=== PATIENT | male | born 2005 | race African-American/Black ===

== ENCOUNTER 2024-05-18 18:12 | Outpatient (CLI) | payer MEDICAID, SELFPAY ==
--- NOTE | 2024-05-18 18:00 | RT.EKG_ITS ---
APPROVED REPORT Exam: Resting ECG Reason for Exam: evaluation of cardiology Patient Location: O HR:109 bpm ECG Measurements Heart Rate 109 AXIS ND 131 P 58 QRSd 85 QRS 63 QT 302 T 42 QTc 407 Conclusion Sinus tachycardia...rate> 99 ST elev, probable normal early repol pattern...ST elevation, age<55 Baseline wander in lead(s) V4,V5,V6 Normal Electrocardiogram
== END 2024-05-18 18:13 | disposition home or self-care (01) ==
LOC: DI.CM 18:13
PROVIDERS: Visit Provider Physician Assistant
DX: R06.89 Other abnormalities of breathing (principal)
CPT/HCPCS: 93010

== ENCOUNTER 2024-05-18 19:05 | Inpatient (IN) | payer MEDICAID, SELFPAY ==
[2024-05-18] VITALS (23 sets, daily range): BP systolic 176–193; BP diastolic 109–138; PULSE 86–116; RESP 12–26; TEMP 37.3; O2SAT 85–98
--- NOTE | 2024-05-18 19:00 | RT.EKG_ITS ---
APPROVED REPORT Exam: Resting ECG Reason for Exam: ST changes noted on [facility] EKG done THERAPEUTIC CASE MANAGER Patient Location: E HR:109 bpm ECG Measurements Heart Rate 109 AXIS MS 129 P 61 QRSd 88 QRS 56 QT 303 T 31 QTc 408 Conclusion Sinus tachycardia at a rate of 109 without acute ischemic change
--- NOTE | 2024-05-18 19:14 | W.ED.GENAD ---
Discharge Plan Disposition Patient Disposition: Admit to [facility] Condition: Stable Discharge Details Clinical Impression: Sepsis Primary Care Provider: Unknown,Unknown ED Provider: Rubens Berry Home Meds and New Rx's Prescriptions: No Action No Known Home Meds HPI General Date/Time Provider Initiated Documentation: 05/18/24 19:14. HPI Narrative: 18 year-old male presents to ED today by EMS with a chief complaint of seen at [facility] in [place] with shortness of breath for 4 days, toxic vitals noted at office- they were concerned for PTX vs PNA. Quality described as acute on chronic nausea/vomiting, cough with brown and green sputum, mild shortness of breath, lethargy, no radiation to fever, diarrhea, severe headache, patient endorses sinus congestion, endorses breathing weird when he lays down, endorses right-sided abdominal pain, Patient is a very poor historian and has a flat affect I think his health literacy is low. Severity is described as moderate to severe. Palliating factors include nothing specific attempted. Provoking factors include nothing specific. Patient not anticoagulated. Related Data Home Medications ?Medication ?Instructions ?Recorded ?Confirmed Unknown [No Known Home Meds] 05/18/24 05/18/24 Allergies Allergy/AdvReac Type Severity Reaction Status Date / Time seasonal allergies Allergy Unknown runny nose Uncoded 05/18/24 19:08 General Stated Complaint: SOB QUIRINO: 3 Review of Systems All systems reviewed & are unremarkable except as noted in HPI and below Exam Narrative Exam Narrative: GENERAL APPEARANCE: Well-nourished, toxic, awake and alert, atraumatic, mild acute distress. SKIN: Warm, pale, dry, intact, without rashes/lesions/ulcerations. HEAD: Normocephalic, atraumatic, normal hair distribution for gender/age. EYES: Normal conjunctiva, no exudates on lids/lashes. ENT: Nares patent, no circumoral cyanosis, no facial swelling, maxillary sinus tenderness NECK: Supple, trachea midline, painless cervical ROM. LUNGS/CHEST: Lungs -diffusely rhonchorous lungs, no wheezing, poor air movement, non-labored respirations, normal A/P diameter, symmetrical expansion, no chest wall deformity HEART (CV/PV): Regular rate and rhythm without murmur, no peripheral edema, no JVD. ABDOMEN: Soft, non-distended, no guarding, right upper quadrant tenderness and firmness, no McBurney's point tenderness, no CVA tenderness bilaterally to percussion. MSK: Normal ROM, no swelling/deformity to bilateral UEs or LEs, moving all extremities without weakness, no cyanosis, spine midline without tenderness, normal curvature. NEURO: Mental Status AAOx4 - alert to person, place, time, events No facial droop, no forehead involvement. Motor: No focal weakness - strength 5/5 in bilateral UEs and LEs, proximal and distal, symmetric. Sensory: sensation intact to light touch globally. Gait normal: patient ambulated without ataxia into ED room. PSYCH: dysthymic, cooperative, flat affect, appropriate speech Course Vital Signs Vital signs: Vital Signs Temperature 37.3 C 05/18/24 19:04 Pulse 114 H 05/18/24 19:04 Respiratory Rate 14 05/18/24 19:04 Blood Pressure 191/123 H 05/18/24 19:04 Pulse Oximetry 96 05/18/24 19:04 Temperature 37.3 C 05/18/24 19:11 Temperature Source Oral 05/18/24 19:11 Pulse 114 H 05/18/24 19:11 Respiratory Rate 14 05/18/24 19:11 Respiratory Effort Short of Breath 05/18/24 19:09 Blood Pressure 191/123 H 05/18/24 19:11 Pulse Oximetry 96 05/18/24 19:11 Oxygen Delivery Method Room Air 05/18/24 19:11 Oxygen Flow Rate 0 05/18/24 19:11 Pain Level 6 05/18/24 19:11 Medical Decision Making This dictation utilizes [id number] dictation software and may contain unedited grammatical errors. 18 year-old male presents to ED today by EMS with a chief complaint of seen at [facility] in [place] with shortness of breath for 4 days, toxic vitals noted at office- they were concerned for PTX vs PNA. Quality described as acute on chronic nausea/vomiting, cough with brown and green sputum, mild shortness of breath, lethargy, no radiation to fever, diarrhea, severe headache, patient endorses sinus congestion, endorses breathing weird when he lays down, endorses right-sided abdominal pain, Patient is a very poor historian and has a flat affect I think his health literacy is low. Severity is described as moderate to severe. Palliating factors include nothing specific attempted. Provoking factors include nothing specific. Patients' medical history: Negative, otherwise healthy. Family and social history: Patient endorses daily marijuana use, denies illicit substance use. Pertinent exam findings / vital signs include right upper quadrant abdominal tenderness, diffusely rhonchorous lungs with poor air movement left worse than right, tachycardia, benign cardiac exam, no meningismus, neuro baseline. Differential / pathologies of concern include sepsis, pneumonia, Legionella pneumonia, biliary colic, unlikely cannabis hyperemesis. Diagnostic studies of: -CBC, CMP, lactate, lipase, troponin, COVID/flu/RSV PCR, XR chest, blood cultures, CT chest/ABD/pelvis W contrast, VBG. -CBC shows a leukocytosis of 30.99, elevated ANC to 27.64 -Lactate is negative -CMP is without acute abnormality save for mild elevation of alk phos -Lipase within normal limits -Respiratory panel swab negative -XR chest shows no acute abnormality -Blood cultures pending -VBG shows no acute abnormality -CT Chest/ABD/Pelvis w Contrast read after shift-change to hospitalist. Interventions of: -Sepsis bolus 30 cc/kg, 2250 mL total. 2 g IV ceftriaxone, 500 mg IV azithromycin, 1 g IV Tylenol, 50 mg IV ketorolac, 4 mg IV Zofran ED Course/Assessment/Plan: 18-year-old male with toxic vitals and a respiratory syndrome with right upper quadrant tenderness and nausea and vomiting presents to the ED from [facility] in [place], their providers were concerned for pneumonia versus pneumothorax, his chest x-ray is normal but his white count is 31 which is concerned for sepsis, his other laboratory workup is fairly benign and due to the right upper quadrant tenderness as well as no pulmonary abnormality seen on chest x-ray we did order CT chest abdomen pelvis after consulting with hospitalist Dr. Nieto, as well as a VBG. I think the patient meets sepsis criteria and should be admitted regardless of results but pending no surgical abnormality he will be excepted to medicine service. Disposition of Sepsis. Patient verbalized understanding of the plan and return to ED criteria and engaged in shared decision making. Medical Records Medical records reviewed: Yes I reviewed the patient's medical records. Imaging Data Radiologic Study: Attestation: I personally reviewed and interpreted this imaging study as follows: Imaging: X-Ray Radiologist's impression: Exam: XR Chest Exam date and time: 05/18/2024 7:48 PM Age: 18 years old Clinical indication: Cough TECHNIQUE: Imaging protocol: Radiologic exam of the chest. Views: 2 views. COMPARISON: No relevant prior studies available. FINDINGS: Lungs: Unremarkable. No consolidation. Pleural spaces: Unremarkable. No pleural effusion. No pneumothorax. Heart/Mediastinum: Unremarkable. No cardiomegaly. Bones/joints: Unremarkable. IMPRESSION: No acute findings. Lab Data Lab results reviewed: Yes I reviewed the patient's lab results. Labs: 05/18/24 20:00 Blood Blood Culture - Pending 05/18/24 19:31 Blood Blood Culture - Pending Laboratory Tests Range/Units 05/18/24 05/18/24 05/18/24 19:31 19:34 20:25 WBC (4.4-10.8) 10^3/uL 30.99 H* RBC (4.36-5.78) 10^6/uL 6.00 H Hgb (13.5-17.5) g/dL 16.2 Hct (40.0-50.0) % 49.4 MCV (80-95) fL 82 MCH (27.0-33.0) pg 27.0 MCHC (32.0-36.0) % 32.8 RDW (11.8-14.1) % 14.5 H Plt Count (130-400) 10^3/uL 456 H MPV (8.0-11.0) fL 9.2 Immature Gran % % 0.7 Neutrophils % % 89.2 Lymphocytes % % 4.8 Monocytes % % 4.5 Eosinophils % % 0.3 Basophils % % 0.5 Nucleated RBC % (0.0-0.3) % 0.0 Absolute Neutrophils (1.2-6.7) 10^3/uL 27.64 H Absolute Lymphocytes (1.2-3.4) 10^3/uL 1.49 Absolute Monocytes (0.1-0.8) 10^3/uL 1.39 H Absolute Eosinophils (0.0-0.7) 10^3/uL 0.09 Absolute Basophils (0.0-0.2) 10^3/uL 0.15 RBC Morphology Normal VBG Lactate (0.6-1.4) mmol/L 1.2 Sodium (136-145) mmol/L 145 Potassium (3.5-5.1) mmol/L 3.7 Chloride (98-107) mmol/L 107 Carbon Dioxide (21.0-32.0) mmol/L 28.1 Anion Gap (3-11) mmol/L 9.9 BUN (7-18) mg/dL 10 Creatinine (0.70-1.30) mg/dL 1.0 Est GFR (CKD-EPI 2020) (mL/min/1.73m2) 111.19 Glucose (74-106) mg/dL 101 Calcium (8.5-10.1) mg/dL 9.6 Total Bilirubin (0.2-1.0) mg/dL 0.34 AST (15-37) U/L 17 ALT (16-63) U/L 31 Alkaline Phosphatase (46-116) U/L 141 H Troponin I (<or=76) ng/L 7 7 Total Protein (6.4-8.2) g/dL 8.5 H Albumin (3.4-5.0) g/dL 3.9 Lipase (16-77) U/L 26 COVID-19 Source Nasopharynx SARS-CoV-2 (PCR) (Negative) Negative Influenza Type A (PCR) (Negative) Negative Influenza Type B (PCR) (Negative) Negative RSV (PCR) (Negative) Negative Quality:SDOH Health Related Social Needs: No Data to Display PFSH All Active Problems (Updated 05/18/24 @ 21:44 by BARRY Fiore) Sepsis (Acute) Social History Smoking/Tobacco Use Status: Current every day Tobacco Type: e-cigarettes Smoking risk assessment performed?: Yes Alcohol Intake: current Alcohol Intake frequency: a few times a month Alcohol type: hard liquor Drug use: Daily Substance use type: marijuana Details: PT states he smokes marijuana daily 05/18/24 Do you feel safe at home: Yes Do you feel safe in your relationship?: Yes
[2024-05-18] MEDS: Ketorolac 15 MG/ML VIAL IVP (19:35)
[2024-05-18] MEDS: ACETAMINOPHEN 1,000 MG/100 ML BAG 400 MG IVPB (19:35)
[2024-05-18 19:39] LABS: Lactate 1.2 mmol/L (0.6-1.4)
[2024-05-18 19:41] LABS: Abs Immature Grans 0.21 10^3/uL (0.0-0.06); Absolute Eosinophil Count 0.09 10^3/uL (0.0-0.7); Absolute Lymphocyte Count 1.49 10^3/uL (1.2-3.4); Absolute Monocyte Count 1.39 10^3/uL (0.1-0.8); Basophils % 0.5 %; Eosinophils % 0.3 %; HCT 49.4 % (40.0-50.0); HGB 16.2 g/dL (13.5-17.5); Immature Grans % 0.7 %; Lymphocytes % 4.8 %; MCHC 32.8 % (32.0-36.0); MCV 82 fL (80-95); MPV 9.2 fL (8.0-11.0); Monocytes % 4.5 %; Neutrophils % 89.2 %; Platelet Count 456 10^3/uL (130-400); RDW 14.5 % (11.8-14.1); RDW-SD 43.1 fL
[2024-05-18 19:46] LABS: Absolute Basophil Count 0.15 10^3/uL (0.0-0.2); Absolute Neutrophil Count 27.64 10^3/uL (1.2-6.7)
[2024-05-18 19:48] LABS: Diff Comment Diff Reviewed; RBC Morphology Normal; WBC 30.99 10^3/uL (4.4-10.8)
--- NOTE | 2024-05-18 19:52 | DI.RAD_ITS ---
Exam(s) XR CHEST 2V PA LATERAL EXAM: XR CHEST 2V PA LATERAL CLINICAL HISTORY: cough TECHNIQUE: 2D digital imaging was performed. Two views. COMPARISON: No exams were available for comparison FINDINGS: HEART: Normal size. Aorta: Not dilated. PULMONARY VASCULATURE: Normal. MEDIASTINUM: Unremarkable. LUNGS: Clear. PLEURAL SPACE: No pleural effusion or pneumothorax. BONE:Unremarkable for age. SOFT TISSUES: Unremarkable. IMPRESSION: No acute abnormality. DATA REPOSITORY: RADIATION DOSE DELIVERED:
[2024-05-18] MEDS: cefTRIAXone 2 GM/50 ML BAG IVPB (20:02)
[2024-05-18] MEDS: Normal Saline 1,000 ML 1000 ML IV ×2 (20:02→20:09)
[2024-05-18 20:03] LABS: ALT 31 U/L (16-63); AST 17 U/L (15-37); Albumin 3.9 g/dL (3.4-5.0); Alkaline Phosphatase 141 U/L (46-116); Anion Gap 9.9 mmol/L (3-11); BUN 10 mg/dL (7-18); Bilirubin, Total 0.34 mg/dL (0.2-1.0); CO2 28.1 mmol/L (21.0-32.0); Chloride 107 mmol/L (98-107); Estimated GFR 111.19 (mL/min/1.73m2); Glucose 101 mg/dL (74-106); Lipase 26 U/L (16-77); Potassium 3.7 mmol/L (3.5-5.1); Sodium 145 mmol/L (136-145); Total Protein 8.5 g/dL (6.4-8.2); Troponin I 7 ng/L (<or=76)
[2024-05-18 20:08] LABS: Calcium 9.6 mg/dL (8.5-10.1)
[2024-05-18 20:22] LABS: COVID-19 PCR Negative (Negative); Influenza A PCR Negative (Negative); Influenza B PCR Negative (Negative); RSV PCR Negative (Negative)
--- NOTE | 2024-05-18 20:25 | DI.VRAD_ITS ---
PROCEDURE INFORMATION: Exam: XR Chest Exam date and time: 05/18/2024 7:48 PM Age: 18 years old Clinical indication: Cough TECHNIQUE: Imaging protocol: Radiologic exam of the chest. Views: 2 views. COMPARISON: No relevant prior studies available. FINDINGS: Lungs: Unremarkable. No consolidation. Pleural spaces: Unremarkable. No pleural effusion. No pneumothorax. Heart/Mediastinum: Unremarkable. No cardiomegaly. Bones/joints: Unremarkable. IMPRESSION: No acute findings. Dictated and Authenticated by: Clayton Napoles MD. Ordering:ABDULLAHI Art MD
[2024-05-18 20:30] LABS: Source Nasopharynx
[2024-05-18] MEDS: AZITHROMYCIN 500 MG in Normal Saline 250 ML 250 MG IVPB (20:45)
[2024-05-18 21:00] LABS: Troponin I 7 ng/L (<or=76)
--- NOTE | 2024-05-18 21:15 | DI.CT_ITS ---
Exam(s) CT CHEST/ABD/PEL W EXAM: CT CHEST/ABD/PEL W CLINICAL HISTORY: sepsis, infection search; resp vs abd. TECHNIQUE: Imaging Protocol: Axial computed tomography images with coronal and sagittal reformatted images were created and reviewed. Computer aided detection (CAD) was utilized. CONTRAST MATERIAL: Intravenous: Omnipaque 350 Contrast volume:100 ml Oral: no COMPARISON: CR,XR XR CHEST 2V PA LATERAL from 05/18/2024 FINDINGS: CHEST: Exam mildly limited by respiratory motion. Tracheobronchial tree: Patent. Pulmonary parenchyma: No consolidation or dominant measurable mass. Pleura: No effusion or pneumothorax. Mediastinum: Within normal limits. Aorta: Thoracic portion non-dilated. Pulmonary arteries: Not optimally opacified. No visible emboli. Heart: No pericardial effusion. Bones: Unremarkable for age. No lytic or blastic lesions.No compression fractures. Soft tissues: Unremarkable. ABDOMEN and PELVIS: Exam mildly limited by motion. Liver: Mildly enlarged. Mild fatty infiltration. No measurable mass. Gallbladder and biliary tract: No evidence of stones or wall thickening. No biliary dilatation. Pancreas: Normal density, no abnormal calcifications or inflammatory process. Spleen: Normal. Kidneys: Normal size, contour and axis. No radiodense stones. No obstructive uropathy. No suspicious masses seen. Adrenal glands: No masses seen. Aorta: Abdominal portion non-dilated. Lymph nodes: Within normal limits. Soft tissues: Unremarkable. Bladder: Nearly empty but unremarkable. Bowel: No obstruction or bowel wall thickening. Normal quantity of stool. Peritoneal cavity: No ascites. No focal collection. No mesenteric inflammatory response. No free ai r. Bones: Unremarkable for age. Reproductive organs: Within normal limits. IMPRESSION: No acute abnormality in the chest, abdomen or pelvis. RADIATION DOSE DELIVERED: Total DLP DATA REPOSITORY: All CT scans at this facility are submitted to the National Radiology Data Registry (NRDR) Dose Index Registry (DIR) with the [employer] (ACR). RADIATION OPTIMIZATION: All CT scans at this facility use at least one of these dose optimization te chniques: automated exposure control; mA and/or kV adjustment per patient size (includes targeted exa ms where dose is matched to clinical indication); or iterative reconstruction.
[2024-05-18 21:39] LABS: BE (Venous) 3 mmol/L (-2-3); HCO3 (Venous) 28 mmol/L (23-28); O2 Sat (Venous) 40 %; TCO2 (Venous) 25 mmol/L (24-29); pCO2 (Venous) 50 mmHg (41-51); pH (Venous) 7.36 (7.31-7.41); pO2 (Venous) 24 mmHg
[2024-05-18] MEDS: Omnipaque 350 MG/ML 100 ML BTL IJ (21:46)
[2024-05-18] MEDS: Normal Saline - Diluent 50 ML VIAL IJ (21:46)
--- NOTE | 2024-05-18 22:18 | DI.VRAD_ITS ---
PROCEDURE INFORMATION: Exam: CT Chest With Contrast; Diagnostic Exam date and time: 05/18/2024 9:45 PM Age: 18 years old Clinical indication: Other: Sepsis, infection search; Resp vs abd TECHNIQUE: Imaging protocol: Diagnostic computed tomography of the chest with contrast. 3D rendering (Not supervised by radiologist): MIP and/or 3D reconstructed images were created by the technologist. Contrast material: OMNI 350; Contrast volume: 100 ml; Contrast route: INTRAVENOUS (IV); COMPARISON: CR XR CHEST 2V PA LATERAL 05/18/2024 7:48 PM FINDINGS: Lungs: No acute lung consolidation. No pulmonary edema. Pleural spaces: No pleural effusion. Heart: Unremarkable. No cardiomegaly. No pericardial effusion. Lymph nodes: No hilar or mediastinal lymphadenopathy. Vasculature: Pulmonary artery is unremarkable in course and caliber. No pulmonary arterial embolism is detected. Contrast opacification is not optimized for this diagnosis. Thoracic aorta is unremarkable in course and caliber. Bones/joints: Unremarkable. No acute fracture. Soft tissues: Chest wall soft tissues are unremarkable. IMPRESSION: 1. No acute findings of the lungs and pleural space. 2. No hilar or mediastinal adenopathy. Chest wall soft tissues are unremarkable. PROCEDURE INFORMATION: Exam: CT Abdomen And Pelvis With Contrast Exam date and time: 05/18/2024 9:45 PM Age: 18 years old Clinical indication: Other: Sepsis, infection search; Resp vs abd TECHNIQUE: Imaging protocol: Computed tomography of the abdomen and pelvis with contrast. 3D rendering (Not supervised by radiologist): MIP and/or 3D reconstructed images were created by the technologist. Contrast material: OMNI 350; Contrast volume: 100 ml; Contrast route: INTRAVENOUS (IV); COMPARISON: CR XR CHEST 2V PA LATERAL 05/18/2024 7:48 PM FINDINGS: Liver: Diffuse moderate fatty liver change. Gallbladder and biliary ducts: The gallbladder is normal in size and shape. No stones or inflammatory changes. Pancreas: The pancreas is normal in contour and attenuation. Spleen: The spleen is normal in size, contour and attenuation. Adrenal glands: The adrenal glands are normal in size and contour bilaterally. Kidneys and ureters: No obstructive uropathy or acute renal inflammatory features. No calculi. No cyst or mass. Stomach and bowel: Gastric morphology is unremarkable. No edema. No gastric outlet obstruction. Small bowel loops are normal in course. There is some air and fluid throughout small bowel without lucy edema. cannot exclude a mild small bowel enteritis process. Large bowel is unremarkable in course and caliber. No edema. No obstruction or inflammatory features. Appendix: A non inflamed appendix is identified. Series 5: Images 99 through 103. Intraperitoneal space: No free fluid. No free air. Vasculature: Unremarkable. No abdominal aortic aneurysm. Lymph nodes: Unremarkable. No enlarged lymph nodes. Urinary bladder: Urinary bladder is unremarkable in appearance. No wall thickening. No intravesicular calculi. No intravesicular gas. Reproductive: Unremarkable as visualized. Bones/joints: Lumbar spine and bony pelvis are unremarkable. Soft tissues: Abdominal wall soft tissues are unremarkable. IMPRESSION: 1. Small bowel pattern suggesting a mild enteritis. No mechanical obstruction. 2. No free fluid or free air. 3. Fatty liver. 4. Unremarkable kidneys and urinary bladder. 5. A non inflamed appendix is identified. Dictated and Authenticated by: Clayton Napoles MD. Ordering:ABDULLAHI Art MD
[2024-05-18 22:19] LABS: Bilirubin Negative (Negative); Blood Negative (Negative); Clarity Clear (Clear); Glucose Negative (Negative); Ketones Negative (Negative); Leukocyte Esterase Negative (Negative); Nitrite Negative (Negative); Specific Gravity 1.015 (1.005-1.025); Urobilinogen 0.2 mg/dL (Up to 0.2)
--- NOTE | 2024-05-18 23:01 | W.PM.HP.N ---
Date of service: 05/18/24 Time of Service: 23:01 Assessment and Plan Assessment and plan (1) Sepsis: Start date: 05/18/24 Status: Acute Assessment and plan: This is a 18-year-old gentleman who has been generally well with upper respiratory symptoms beginning this last week prompting evaluation at the outpatient clinic and then in the ED because of difficulty breathing with asthma exacerbation. He had poor air movement but no hypoxemia with VBG revealing no respiratory alkalosis or compensation and his respiratory rate was low even though he was having dyspnea. This was concerning because of patient admitting to smoking THC and the possibility of other substances being inhaled. He was admitted initially to ICU level of care with his low respiratory rate and markedly elevated WBC though imaging was reassuring. He awakened and stated that he had not slept for days prior to this admission and denies illicit drug use. He was changed over to [facility] level of care and he was not meeting ICU criteria at this time. He will continue close monitoring with treatment of his hypertension with metoprolol and continuation of antibiotics with Zithromax for treatment of bronchitis. There is no indication for Zosyn or Rocephin at this time. If he does well he may be discharged home on oral therapy within 24-48 hours. He does need to establish with a local PCP for chronic care. He is a full code. Qualifiers: Sepsis acute organ dysfunction status: without acute organ dysfunction Sepsis type: sepsis due to unspecified organism Qualified Code(s): A41.9 - Sepsis, unspecified organism (2) Purulent bronchitis: Start date: 05/18/24 Status: Acute Assessment and plan: Continue Zithromax IV. Oral therapy at discharge. There is no indication for Zosyn which was initiated for possible GI source of sepsis initially or Rocephin which was initiated for possible pneumonia initially. (3) Asthma exacerbation: Start date: 05/18/24 Status: Acute Assessment and plan: Patient had asthma as a child and smokes marijuana daily with possible other substances being smoked. He was hypopneic but denied smoking illicit drugs other than THC which is legal though he has used cocaine in the past. It is possible he may have smoked an unknown substance but appears to be awake and not progressing with respiratory suppression at this time. He is not febrile. He does at least have bronchitis which will be treated but because of his slow respiratory rate and alertness improving along with negative imaging for acute pneumonia, he will have Zosyn and Rocephin discontinued but continue on Zithromax which can be converted to oral therapy to go home for treatment of bronchitis. He should continue maintenance inhaler and rescue inhaler at discharge. Qualifiers: Asthma persistence: persistent Asthma severity: moderate Qualified Code(s): J45.41 - Moderate persistent asthma with (acute) exacerbation (4) Gastroenteritis: Start date: 05/18/24 Status: Acute Assessment and plan: Patient did have viral URI and may have a viral gastroenteritis presently with some mild abdominal discomfort in his upper abdomen. He is having no diarrhea or change in bowel habits. He does not have nausea or vomiting. He does have steatorrhea and is moderately obese with no history of diabetes but possible thyroid disease in the past. Initially he was treated with Zosyn because of sepsis but appears to be improving quickly with mostly asthma exacerbation and bronchitis. Zosyn has been discontinued. Patient will be placed on clear fluids and advance diet as tolerated. (5) HTN (hypertension): Status: Chronic Assessment and plan: Patient states his blood pressures always been elevated when measured and has not had a recent medical care. Metoprolol low-dose 25 mg twice daily and can be discharged home on metoprolol succinate 50 mg daily for and a higher dose as needed for blood pressure control. He is tachycardic as well. Qualifiers: Hypertension type: unspecified secondary hypertension Qualified Code(s): I15.9 - Secondary hypertension, unspecified (6) Steatohepatitis: Status: Chronic Assessment and plan: Patient has been overweight most of his life and did have a history of possible hypothyroidism when he was younger. Check TSH and follow-up clinically. History of Present Illness History of Present Illness Chief Complaint: Shortness of breath with decreased alertness. Narrative: This is a 18-year-old male patient who has a history of asthma as a child but not on treatment presently who began to have upper respiratory symptoms with mild abdominal discomfort over the last week. He does work at [employer] and is exposed to the public. He denies any fever. He was seen as an outpatient but return to the ED because of increasing shortness of breath. In the ED he had no fever but a markedly elevated WBC with tachycardia and hypertension. He also was drowsy and sleeping with slow respiratory rate into the 12 breaths/min and multiple times during his evaluation. VBG did not show respiratory alkalosis as would be suspected with shortness of breath though he was not hypoxic. There was some concern of illicit drug use because of his decreased respiratory rate and decreased alertness though the patient stated that he was simply sleeping because of not having restful sleep over the last several days. While elevated in the ICU he was alert and talking normally. Also his respiratory rate was normal but he continued with hypertension and tachycardia. He did not manifest fever. Imaging did reveal fatty liver and possible enteritis the patient being given Zosyn initially with his presentation and sepsis. He also received Rocephin in the ED with Zithromax for possible reacquired pneumonia but CT of the chest did not reveal any infiltrates. The patient at least does have bronchitis with productive purulent sputum at home. He denies any hemoptysis. He was on treatment for asthma when he was younger but this has been stopped as he moved up to [place], [place]. He will continue on nebulizer treatments with IV Zithromax and close monitoring while initiating treatment for his blood pressure which is chronically elevated for this patient. We will trend his WBC or fever. Urine drug screens have been sent but patient denies any recent use of illicit drugs though he has used cocaine in the past. He mostly smokes THC daily. He is a full code. Review of Systems Narrative: 13 point review of systems otherwise unrevealing or stable. PFSH All Active Problems (Updated 05/19/24 @ 01:42 by Samuel Nieto) Asthma exacerbation (Acute) Purulent bronchitis (Acute) HTN (hypertension) (Chronic) Gastroenteritis (Acute) Steatohepatitis (Chronic) Sepsis (Acute) Social History Smoking/Tobacco Use Status: Current every day Tobacco Type: e-cigarettes Smoking risk assessment performed?: Yes Alcohol Intake: current Alcohol Intake frequency: a few times a month Alcohol type: hard liquor Drug use: Daily Substance use type: marijuana Details: PT states he smokes marijuana daily 05/18/24 Housing: house Do you feel safe at home: Yes Do you feel safe in your relationship?: Yes Meds Allergies and Home Medications Allergies Allergy/AdvReac Type Severity Reaction Status Date / Time seasonal allergies Allergy Unknown runny nose Uncoded 05/18/24 19:08 Home Medications ?Medication ?Instructions ?Recorded ?Confirmed ?Type Unknown [No Known Home Meds] 05/18/24 05/18/24 History Exam Narrative Exam Narrative: General: Patient appears appropriate for age, moderately obese, alert and oriented x 3 and in no acute distress. Poor eye contact and flattened affect with slow monotonous tone to speech. HEENT: Normocephalic, eyes with pupils equal and reactive to light symmetrically, extraocular movement intact and sclera anicteric. Oropharynx with moist mucosa and normal dentition. Neck: Supple without JVD. Back: Stooped posture without CVA tenderness. Lungs: Poor to fair aeration diffusely with increased expiratory phase and expiratory wheeze without rhonchi or rales. Vesicular breath sounds. Heart: Regular rate and rhythm with no murmur or gallop appreciated. Abdomen: Obese contour, soft and nontender to palpation with no palpable hepatosplenomegaly. Bowel sounds positive all quadrants. Genitalia/rectal: Exam deferred. Skin: Brown, warm and dry. Normal turgor. No rashes. Extremities: Without edema, clubbing or cyanosis. Peripheral pulses intact. Normal joints. Neuro: Cranial nerves II through XII gross intact, no focalized motor deficits. No tremor. Normal tone and symmetrical, histologic DTRs bilaterally. Psych: Flattened affect with depressed mood. Decreased eye contact. Monotonous tone to voice with slow speech. No abnormal thought processes. Remote and recent memory intact. Results Imaging Imaging Studies: Exam: CT Chest With Contrast; Diagnostic Exam date and time: 05/18/2024 9:45 PM Age: 18 years old Clinical indication: Other: Sepsis, infection search; Resp vs abd TECHNIQUE: Imaging protocol: Diagnostic computed tomography of the chest with contrast. 3D rendering (Not supervised by radiologist): MIP and/or 3D reconstructed images were created by the technologist. Contrast material: OMNI 350; Contrast volume: 100 ml; Contrast route: INTRAVENOUS (IV); COMPARISON: CR XR CHEST 2V PA LATERAL 05/18/2024 7:48 PM FINDINGS: Lungs: No acute lung consolidation. No pulmonary edema. Pleural spaces: No pleural effusion. Heart: Unremarkable. No cardiomegaly. No pericardial effusion. Lymph nodes: No hilar or mediastinal lymphadenopathy. Vasculature: Pulmonary artery is unremarkable in course and caliber. No pulmonary arterial embolism is detected. Contrast opacification is not optimized for this diagnosis. Thoracic aorta is unremarkable in course and caliber. Bones/joints: Unremarkable. No acute fracture. Soft tissues: Chest wall soft tissues are unremarkable. IMPRESSION: 1. No acute findings of the lungs and pleural space. 2. No hilar or mediastinal adenopathy. Chest wall soft tissues are unremarkable. PROCEDURE INFORMATION: Exam: CT Abdomen And Pelvis With Contrast Exam date and time: 05/18/2024 9:45 PM Age: 18 years old Clinical indication: Other: Sepsis, infection search; Resp vs abd TECHNIQUE: Imaging protocol: Computed tomography of the abdomen and pelvis with contrast. 3D rendering (Not supervised by radiologist): MIP and/or 3D reconstructed images were created by the technologist. Contrast material: OMNI 350; Contrast volume: 100 ml; Contrast route: INTRAVENOUS (IV); COMPARISON: CR XR CHEST 2V PA LATERAL 05/18/2024 7:48 PM FINDINGS: Liver: Diffuse moderate fatty liver change. Gallbladder and biliary ducts: The gallbladder is normal in size and shape. No stones or inflammatory changes. Pancreas: The pancreas is normal in contour and attenuation. Spleen: The spleen is normal in size, contour and attenuation. Adrenal glands: The adrenal glands are normal in size and contour bilaterally. Kidneys and ureters: No obstructive uropathy or acute renal inflammatory features. No calculi. No cyst or mass. Stomach and bowel: Gastric morphology is unremarkable. No edema. No gastric outlet obstruction. Small bowel loops are normal in course. There is some air and fluid throughout small bowel without lucy edema. cannot exclude a mild small bowel enteritis process. Large bowel is unremarkable in course and caliber. No edema. No obstruction or inflammatory features. Appendix: A non inflamed appendix is identified. Series 5: Images 99 through 103. Intraperitoneal space: No free fluid. No free air. Vasculature: Unremarkable. No abdominal aortic aneurysm. Lymph nodes: Unremarkable. No enlarged lymph nodes. Urinary bladder: Urinary bladder is unremarkable in appearance. No wall thickening. No intravesicular calculi. No intravesicular gas. Reproductive: Unremarkable as visualized. Bones/joints: Lumbar spine and bony pelvis are unremarkable. Soft tissues: Abdominal wall soft tissues are unremarkable. IMPRESSION: 1. Small bowel pattern suggesting a mild enteritis. No mechanical obstruction. 2. No free fluid or free air. 3. Fatty liver. 4. Unremarkable kidneys and urinary bladder. 5. A non inflamed appendix is identified. Exam: XR Chest Exam date and time: 05/18/2024 7:48 PM Age: 18 years old Clinical indication: Cough TECHNIQUE: Imaging protocol: Radiologic exam of the chest. Views: 2 views. COMPARISON: No relevant prior studies available. FINDINGS: Lungs: Unremarkable. No consolidation. Pleural spaces: Unremarkable. No pleural effusion. No pneumothorax. Heart/Mediastinum: Unremarkable. No cardiomegaly. Bones/joints: Unremarkable. IMPRESSION: No acute findings. Labs 05/18/24 19:34 05/18/24 19:34 Labs: Laboratory Results - last 24 hr 05/18/24 05/18/24 05/18/24 19:31 19:34 20:25 WBC 30.99 H* RBC 6.00 H Hgb 16.2 Hct 49.4 MCV 82 MCH 27.0 MCHC 32.8 RDW 14.5 H Plt Count 456 H MPV 9.2 Immature Gran % 0.7 Neutrophils % 89.2 Lymphocytes % 4.8 Monocytes % 4.5 Eosinophils % 0.3 Basophils % 0.5 Nucleated RBC % 0.0 Absolute Neutrophils 27.64 H Absolute Lymphocytes 1.49 Absolute Monocytes 1.39 H Absolute Eosinophils 0.09 Absolute Basophils 0.15 RBC Morphology Normal VBG pH VBG pCO2 VBG pO2 VBG HCO3 VBG Total CO2 VBG O2 Saturation VBG Base Excess VBG Lactate 1.2 Sodium 145 Potassium 3.7 Chloride 107 Carbon Dioxide 28.1 Anion Gap 9.9 BUN 10 Creatinine 1.0 Est GFR (CKD-EPI 2020) 111.19 Glucose 101 Calcium 9.6 Total Bilirubin 0.34 AST 17 ALT 31 Alkaline Phosphatase 141 H Troponin I 7 7 Total Protein 8.5 H Albumin 3.9 Lipase 26 Urine Color Urine Clarity Urine pH Ur Specific [place] Urine Protein Urine Ketones Urine Blood Urine Nitrite Urine Bilirubin Urine Urobilinogen Ur Leukocyte Esterase Urine Glucose COVID-19 Source Nasopharynx SARS-CoV-2 (PCR) Negative Influenza Type A (PCR) Negative Influenza Type B (PCR) Negative RSV (PCR) Negative 05/18/24 05/18/24 21:35 22:07 WBC RBC Hgb Hct MCV MCH MCHC RDW Plt Count MPV Immature Gran % Neutrophils % Lymphocytes % Monocytes % Eosinophils % Basophils % Nucleated RBC % Absolute Neutrophils Absolute Lymphocytes Absolute Monocytes Absolute Eosinophils Absolute Basophils RBC Morphology VBG pH 7.36 VBG pCO2 50 VBG pO2 24 VBG HCO3 28 VBG Total CO2 25 VBG O2 Saturation 40 VBG Base Excess 3 VBG Lactate Sodium Potassium Chloride Carbon Dioxide Anion Gap BUN Creatinine Est GFR (CKD-EPI 2020) Glucose Calcium Total Bilirubin AST ALT Alkaline Phosphatase Troponin I Total Protein Albumin Lipase Urine Color Yellow Urine Clarity Clear Urine pH 7.0 Ur Specific [place] 1.015 Urine Protein Negative Urine Ketones Negative Urine Blood Negative Urine Nitrite Negative Urine Bilirubin Negative Urine Urobilinogen 0.2 Ur Leukocyte Esterase Negative Urine Glucose Negative COVID-19 Source SARS-CoV-2 (PCR) Influenza Type A (PCR) Influenza Type B (PCR) RSV (PCR) Last Vital Signs Temp 37.3 C 05/18/24 19:11 Pulse 91 H 05/18/24 21:01 Resp 12 05/18/24 21:10 BP 193/120 H 05/18/24 21:01 Pulse Ox 92 05/18/24 21:10 Time Spent Time spent with Patient: >75 minutes Time was spent: preparing to see the patient(eg.review tests), obtaining and/or reviewing separately otained hiistory, ordering medications,tests, procedures, indepentently interpreting results, counseling the patient and care coordination
[2024-05-19] VITALS (58 sets, daily range): BP systolic 148–176; BP diastolic 87–111; PULSE 71–106; RESP 13–48; TEMP 36.4–37.2; O2SAT 92–100
[2024-05-19] LABS: ETHANOL BLOOD < 3.0 mg/dL (<10)
--- NOTE | 2024-05-19 00:22 | W.PC.ACHO ---
Registration Status: Primary Language: Preferred Language: ED Information & Data Chief Complaint SOB 05/18/24 19:14 Triage Note Pt arrives to the ED via EMS 05/18/24 19:04 c/o SOB x 4 days. Pt was seen at [facility] around 3 pm today c/f PTX vs. pneumonia per pt; LLL lung sounds diminished per EC. Pt states he is coughing up green/brown phlegm Most Recent Vital Signs Temperature 36.8 C 05/19/24 00:07 Temperature Source Temporal Artery Scan 05/19/24 00:07 Pulse 79 05/19/24 00:07 Pulse Rhythm Regular 05/19/24 00:07 Pulse Strength Normal 05/19/24 00:07 Pulse 98 H 05/18/24 21:10 Respiratory Rate 16 05/19/24 00:07 Respiratory Effort Normal 05/19/24 00:07 Respiratory Depth Normal 05/19/24 00:07 Respiratory Pattern Normal 05/19/24 00:07 Blood Pressure 148/87 H 05/19/24 00:07 Blood Pressure Mean 107 05/19/24 00:07 Blood Pressure Position Sitting 05/19/24 00:07 Pulse Oximetry 99 05/19/24 00:07 Oxygen Delivery Method Room Air 05/19/24 00:07 Oxygen Flow Rate 0 05/19/24 00:07 Pain Level 7 05/18/24 19:35 Comment MD aware of BP 05/18/24 19:32 Allergies seasonal allergies Allergy (Unknown, Uncoded 05/18/24 19:08) runny nose Precautions Isolation Droplet precaution 05/18/24 19:09 Active Medications Generic Name Dose Route Start Last Admin Trade Name Lynne PRN Reason Stop Dose Admin Iohexol 100 ml 05/18/24 22:00 05/18/24 21:46 Omnipaque 350 Mg/Ml 100 Ml Btl IJ 06/17/24 23:59 100 ml DIRECTED JANE Administration Sodium Chloride 250 ml 05/18/24 20:00 05/18/24 21:37 Normal Saline 250 Ml Bag IJ 250 ml DIRECTED JANE Administration Sodium Chloride 50 ml 05/18/24 22:00 05/18/24 21:46 Normal Saline - Diluent 50 Ml Vial IJ 50 ml .FOR DI USE JANE Administration IV IV Catheter Type [Right Peripheral IV Antecubital] IV Catheter Type [Left Peripheral IV Antecubital] IV Catheter Gauge [Right 20 Antecubital] IV Catheter Gauge [Left 18 Antecubital] Diagnostics 05/18/24 05/18/24 05/18/24 Range/Units 22:07 21:35 20:25 WBC (4.4-10.8) 10^3/uL RBC (4.36-5.78) 10^6/uL Hgb (13.5-17.5) g/dL Hct (40.0-50.0) % MCV (80-95) fL MCH (27.0-33.0) pg MCHC (32.0-36.0) % RDW (11.8-14.1) % Plt Count (130-400) 10^3/uL MPV (8.0-11.0) fL Immature Gran % % Neutrophils % % Lymphocytes % % Monocytes % % Eosinophils % % Basophils % % Nucleated RBC % (0.0-0.3) % Absolute Neutrophils (1.2-6.7) 10^3/uL Absolute Lymphocytes (1.2-3.4) 10^3/uL Absolute Monocytes (0.1-0.8) 10^3/uL Absolute Eosinophils (0.0-0.7) 10^3/uL Absolute Basophils (0.0-0.2) 10^3/uL RBC Morphology VBG pH 7.36 (7.31-7.41) VBG pCO2 50 (41-51) mmHg VBG pO2 24 mmHg VBG HCO3 28 (23-28) mmol/L VBG Total CO2 25 (24-29) mmol/L VBG O2 Saturation 40 % VBG Base Excess 3 (-2-3) mmol/L VBG Lactate (0.6-1.4) mmol/L Sodium (136-145) mmol/L Potassium (3.5-5.1) mmol/L Chloride (98-107) mmol/L Carbon Dioxide (21.0-32.0) mmol/L Anion Gap (3-11) mmol/L BUN (7-18) mg/dL Creatinine (0.70-1.30) mg/dL Est GFR (CKD-EPI 2020) (mL/min/1.73m2) Glucose (74-106) mg/dL Calcium (8.5-10.1) mg/dL Total Bilirubin (0.2-1.0) mg/dL AST (15-37) U/L ALT (16-63) U/L Alkaline Phosphatase (46-116) U/L Troponin I 7 (<or=76) ng/L Total Protein (6.4-8.2) g/dL Albumin (3.4-5.0) g/dL Lipase (16-77) U/L Urine Color Yellow (Yellow) Urine Clarity Clear (Clear) Urine pH 7.0 (5-8) Ur Specific [place] 1.015 (1.005-1.025) Urine Protein Negative (Neg-Trace) mg/dL Urine Ketones Negative (Negative) mg/dL Urine Blood Negative (Negative) Urine Nitrite Negative (Negative) Urine Bilirubin Negative (Negative) Urine Urobilinogen 0.2 (Up to 0.2) mg/dL Ur Leukocyte Esterase Negative (Negative) Urine Glucose Negative (Negative) mg/dL Urine Opiates Screen Pending Ur Buprenorphine Pending Ur Norbuprenorphine Pending Urine Fentanyl Screen Pending Ur Barbiturates Screen Pending Ur Tricyclics Screen Pending Ur Amphetamines Screen Pending U Benzodiazepines Scrn Pending Urine Cocaine Screen Pending Ur THC Screen Pending Ethyl Alcohol (<10) mg/dL Urine Xylazine Pending B. divergens/MO-1 PCR Pending Babesia duncani (PCR) Pending Babesia microti DNA PCR Pending COVID-19 Source SARS-CoV-2 (PCR) (Negative) E.chaffeensis DNA (PCR) Pending E.ewingii/canis DNA PCR Pending E.muris eauclairensis (PCR) Pending Influenza Type A (PCR) (Negative) Influenza Type B (PCR) (Negative) RSV (PCR) (Negative) A. phagocytophilum (PCR) Pending Blood B. miyamotoi (PCR) Pending 05/18/24 05/18/24 Range/Units 19:34 19:31 WBC 30.99 H* (4.4-10.8) 10^3/uL RBC 6.00 H (4.36-5.78) 10^6/uL Hgb 16.2 (13.5-17.5) g/dL Hct 49.4 (40.0-50.0) % MCV 82 (80-95) fL MCH 27.0 (27.0-33.0) pg MCHC 32.8 (32.0-36.0) % RDW 14.5 H (11.8-14.1) % Plt Count 456 H (130-400) 10^3/uL MPV 9.2 (8.0-11.0) fL Immature Gran % 0.7 % Neutrophils % 89.2 % Lymphocytes % 4.8 % Monocytes % 4.5 % Eosinophils % 0.3 % Basophils % 0.5 % Nucleated RBC % 0.0 (0.0-0.3) % Absolute Neutrophils 27.64 H (1.2-6.7) 10^3/uL Absolute Lymphocytes 1.49 (1.2-3.4) 10^3/uL Absolute Monocytes 1.39 H (0.1-0.8) 10^3/uL Absolute Eosinophils 0.09 (0.0-0.7) 10^3/uL Absolute Basophils 0.15 (0.0-0.2) 10^3/uL RBC Morphology Normal VBG pH (7.31-7.41) VBG pCO2 (41-51) mmHg VBG pO2 mmHg VBG HCO3 (23-28) mmol/L VBG Total CO2 (24-29) mmol/L VBG O2 Saturation % VBG Base Excess (-2-3) mmol/L VBG Lactate 1.2 (0.6-1.4) mmol/L Sodium 145 (136-145) mmol/L Potassium 3.7 (3.5-5.1) mmol/L Chloride 107 (98-107) mmol/L Carbon Dioxide 28.1 (21.0-32.0) mmol/L Anion Gap 9.9 (3-11) mmol/L BUN 10 (7-18) mg/dL Creatinine 1.0 (0.70-1.30) mg/dL Est GFR (CKD-EPI 2020) 111.19 (mL/min/1.73m2) Glucose 101 (74-106) mg/dL Calcium 9.6 (8.5-10.1) mg/dL Total Bilirubin 0.34 (0.2-1.0) mg/dL AST 17 (15-37) U/L ALT 31 (16-63) U/L Alkaline Phosphatase 141 H (46-116) U/L Troponin I 7 (<or=76) ng/L Total Protein 8.5 H (6.4-8.2) g/dL Albumin 3.9 (3.4-5.0) g/dL Lipase 26 (16-77) U/L Urine Color (Yellow) Urine Clarity (Clear) Urine pH (5-8) Ur Specific [place] (1.005-1.025) Urine Protein (Neg-Trace) mg/dL Urine Ketones (Negative) mg/dL Urine Blood (Negative) Urine Nitrite (Negative) Urine Bilirubin (Negative) Urine Urobilinogen (Up to 0.2) mg/dL Ur Leukocyte Esterase (Negative) Urine Glucose (Negative) mg/dL Urine Opiates Screen Ur Buprenorphine Ur Norbuprenorphine Urine Fentanyl Screen Ur Barbiturates Screen Ur Tricyclics Screen Ur Amphetamines Screen U Benzodiazepines Scrn Urine Cocaine Screen Ur THC Screen Ethyl Alcohol < 3.0 (<10) mg/dL Urine Xylazine B. divergens/MO-1 PCR Babesia duncani (PCR) Babesia microti DNA PCR COVID-19 Source Nasopharynx SARS-CoV-2 (PCR) Negative (Negative) E.chaffeensis DNA (PCR) E.ewingii/canis DNA PCR E.muris eauclairensis (PCR) Influenza Type A (PCR) Negative (Negative) Influenza Type B (PCR) Negative (Negative) RSV (PCR) Negative (Negative) A. phagocytophilum (PCR) Blood B. miyamotoi (PCR) 05/18/24 20:00 Blood Culture - Pending Blood 05/18/24 19:31 Blood Culture - Pending Blood Intake and Output - 24 Hour Total 05/18/24 18:56 thru 05/18/24 22:04 Intake Total 2133.333 Balance 2133.333 Weight 99.79 kg Intake: IV 2133.333 Falls Risk Assessment History of Falls No History 05/18/24 19:12 Contributing Factors No Factors 05/18/24 19:12 Ambulatory Aids Independent 05/18/24 19:12 Tubes/Lines W/no contributing factors 05/18/24 19:12 Gait Evaluation No gait disturbance 05/18/24 19:12 Cognition No cognitive impairment 05/18/24 19:12 Fall Total Score 10 05/18/24 19:12 Level of Risk Standard/Low Risk 05/18/24 19:12 Problems (Last Reviewed 05/18/24 @ 23:02 by Samuel Nieto) Purulent bronchitis (Acute) HTN (hypertension) (Acute) Gastroenteritis (Acute) Steatohepatitis (Acute) Sepsis (Acute) v v v v v v v v v Sending and/or Receiving Nurses: Please use comment section below to note any information pertinent to the patient hand-off not included above. Information / Comments: Yobany UMAÑA Report received from:
[2024-05-19 00:30] LABS: *AMPHETAMINES SCREEN URINE Negative (Negative); *BARBITURATES SCREEN URINE Negative (Negative); *BENZODIAZEPINES SCREEN URINE Negative (Negative); Cannabinoids THC Positive (Negative); Cocaine Screen,Urine Negative (Negative); METHADONE URINE SCREEN Negative (Negative); OPIATES URINE SCREEN Negative (Negative)
[2024-05-19 00:39] LABS: Tricyclic Antidepressants Negative (Negative)
[2024-05-19] MEDS: PIPERACILLIN/TAZO 3.375 GM in Normal Saline 50 ML IVPB (01:41)
[2024-05-19] MEDS: Metoprolol 25 MG TAB PO ×3 (02:13→19:14)
[2024-05-19] MEDS: AZITHROMYCIN 500 MG in Normal Saline 250 ML 250 MG IVPB (02:23)
[2024-05-19 07:23] LABS: HCT 48.5 % (40.0-50.0); HGB 15.8 g/dL (13.5-17.5); MCH 27.1 pg (27.0-33.0); MCHC 32.6 % (32.0-36.0); MCV 83 fL (80-95); MPV 9.8 fL (8.0-11.0); Platelet Count 470 10^3/uL (130-400); RBC 5.83 10^6/uL (4.36-5.78); RDW 14.7 % (11.8-14.1); RDW-SD 44.5 fL
[2024-05-19 07:26] LABS: WBC 29.53 10^3/uL (4.4-10.8)
[2024-05-19 07:34] LABS: INR 1.1 (0.9-1.1)
[2024-05-19 07:47] LABS: ALT 28 U/L (16-63); AST 16 U/L (15-37); Albumin 3.5 g/dL (3.4-5.0); Alkaline Phosphatase 132 U/L (46-116); Anion Gap 9.5 mmol/L (3-11); BUN 7 mg/dL (7-18); Bilirubin, Total 0.51 mg/dL (0.2-1.0); CO2 28.5 mmol/L (21.0-32.0); Calcium 9.1 mg/dL (8.5-10.1); Chloride 109 mmol/L (98-107); Estimated GFR 111.19 (mL/min/1.73m2); Glucose 92 mg/dL (74-106); Potassium 3.7 mmol/L (3.5-5.1); Sodium 147 mmol/L (136-145); Total Protein 7.8 g/dL (6.4-8.2)
[2024-05-19] MEDS: Normal Saline Flush 10 ML SYR IVP ×2 (07:58→20:26)
[2024-05-19] MEDS: Enoxaparin 40 MG/0.4 ML SYR SC (07:58)
--- NOTE | 2024-05-19 08:26 | INITIAL_ITS ---
Date of service: 05/19/24 Time of Service: 08:26 Care Management Initial Assmt Initial Assessment Reason for Hospitalization: Sepsis Functional Status/Living Situation Patient Presentation: Eloise was awake and side lying in bed c/o stomach cramps when CM met with him. CM notified RN. Eloise shares that he recently moved to [place], from [place] and is staying with a friend. He is in need of a local PCP and would like information on local and state resourcesfood, housing, transportation etc. CM placed a referral to [facility] with patients consent. Town of Residence: [place] Resides with: Other (Friend) Significant Other/Family: Local (None) Natural Supports: None, per pt Employment Status: Employed ([employer] in [place]) Instrumental Activities of Daily Living (ADLs): Independent Medications Medication Management: No Issues/Barriers identified Advance Directives Advance Directives: Do you have an Advance Directive: AD On File at [facility]: N 05/18/24 20:22 Date Asked AD Date Reviewed COLST On File at [facility] No 05/18/24 20:22 COLST Date Scanned Code Status Resuscitation Status Full Code Portal Pt does not currently have a portal and education provided: Yes Insurance Coverage/Financial Issues Insurance: Medicaid Care Team Visit Care Team Role Provider Type Unknown Unknown Primary Care Provider STAFF PHYSICIAN BARRY [place] Emergency Provider [employer] Samuel Nieto Admit Provider NON-[facility] STAFF PHYSICIAN Attending Provider Discharge Potential Discharge Needs: PCP F/U Appt Anticipated Barriers to Discharge: Medical Status Patient/Family Education Needs: Review discharge instructions, discuss Ask Me Three Transportation: Private vehicle Plan: Eloise continues to require close monitoring and treatment for sepsis. He will transfer to [place] status later today, and discharge tomorrow is anticipated if pt continues to improve clinically. Needs: Hospital follow up using the [facility] schedule. [facility] referral is made to support patient with community needs and New PCP. PFSH All Active Problems (Updated 05/19/24 @ 01:42 by Samuel Nieto) Asthma exacerbation (Acute) Purulent bronchitis (Acute) HTN (hypertension) (Chronic) Gastroenteritis (Acute) Steatohepatitis (Chronic) Sepsis (Acute) Social History Smoking/Tobacco Use Status: Current every day Tobacco Type: e-cigarettes Smoking risk assessment performed?: Yes Alcohol Intake: current Alcohol Intake frequency: a few times a month Alcohol type: hard liquor Drug use: Daily Substance use type: marijuana Details: PT states he smokes marijuana daily 05/18/24 Housing: house Do you feel safe at home: Yes Do you feel safe in your relationship?: Yes SDOH(Care Management) Screening Will the Patient Participate in the Screening?: Yes Do you worry about having a steady place to live?: no Problems where you live: no known problems In the past 12 months, have you had to go without electric, gas, oil or water in your home?: no Have you or anyone in your house had to go without enough food to eat?: no Has lack of transportation kept you from medical appointments or from doing things needed for daily living?: no Has anyone in your support network made you feel unsafe for any reason?: no Interventions Care Management Referrals: [facility]
--- NOTE | 2024-05-19 11:10 | W.PC.ACHO ---
Registration Status: Primary Language: Preferred Language: ED Information & Data Chief Complaint SOB 05/18/24 19:14 Triage Note Pt arrives to the ED via EMS 05/18/24 19:04 c/o SOB x 4 days. Pt was seen at [facility] around 3 pm today c/f PTX vs. pneumonia per pt; LLL lung sounds diminished per EC. Pt states he is coughing up green/brown phlegm Most Recent Vital Signs Temperature 36.4 C L 05/19/24 11:02 Temperature Source Temporal Artery Scan 05/19/24 11:02 Pulse 85 05/19/24 11:02 Pulse Rhythm Regular 05/19/24 00:07 Pulse Strength Normal 05/19/24 00:07 Pulse 82 05/19/24 08:01 Respiratory Rate 20 05/19/24 11:02 Respiratory Effort Normal 05/19/24 01:02 Respiratory Depth Normal 05/19/24 01:02 Respiratory Pattern Normal 05/19/24 01:02 Blood Pressure 162/98 H 05/19/24 11:02 Blood Pressure Mean 108 05/19/24 08:01 Blood Pressure Position Sitting 05/19/24 00:07 Pulse Oximetry 97 05/19/24 11:02 Oxygen Delivery Method Room Air 05/19/24 11:02 Oxygen Flow Rate 0 05/19/24 11:02 Pain Level 0 05/19/24 01:02 Comment aware of BP 05/18/24 19:32 Allergies seasonal allergies Allergy (Unknown, Uncoded 05/18/24 19:08) runny nose Precautions Isolation Droplet precaution 05/18/24 19:09 Active Medications Generic Name Dose Route Start Last Admin Trade Name Dominickq PRN Reason Stop Dose Admin Albuterol/Ipratropium 3 ml 05/19/24 06:00 05/19/24 05:45 Albuterol/Ipratropium 3 Ml Upd Vial UPD Not Given Q6H JANE Enoxaparin Sodium 40 mg 05/19/24 08:30 05/19/24 07:58 Enoxaparin 40 Mg/0.4 Ml Syr SC 40 mg Q24H JANE Administration Azithromycin 500 mg/ Sodium 250 mls @ 250 mls/hr 05/19/24 02:00 05/19/24 03:21 Chloride IVPB Infused Q24H JANE Infusion Metoprolol Tartrate 25 mg 05/19/24 08:30 05/19/24 07:58 Metoprolol 25 Mg Tab PO 25 mg BID JANE Administration Sodium Chloride 0 ml 05/19/24 08:30 05/19/24 07:58 Normal Saline Flush 10 Ml Syr IVP 20 ml BID JANE Administration IV IV Catheter Type [Right Saline Lock Antecubital] IV Catheter Type [Left Saline Lock Antecubital] IV Catheter Gauge [Right 20 Antecubital] IV Catheter Gauge [Left 18 Antecubital] Diet Orders Category Date Time Status Heart Healthy Eating [DIET] Nutrition 05/19/24 Breakfast Active Diagnostics 05/19/24 05/19/24 05/18/24 Range/Units 06:35 06:35 22:07 WBC 29.53 H* (4.4-10.8) 10^3/uL RBC 5.83 H (4.36-5.78) 10^6/uL Hgb 15.8 (13.5-17.5) g/dL Hct 48.5 (40.0-50.0) % MCV 83 (80-95) fL MCH 27.1 (27.0-33.0) pg MCHC 32.6 (32.0-36.0) % RDW 14.7 H (11.8-14.1) % Plt Count 470 H (130-400) 10^3/uL MPV 9.8 (8.0-11.0) fL Immature Gran % % Neutrophils % % Lymphocytes % % Monocytes % % Eosinophils % % Basophils % % Nucleated RBC % (0.0-0.3) % Absolute Neutrophils (1.2-6.7) 10^3/uL Absolute Lymphocytes (1.2-3.4) 10^3/uL Absolute Monocytes (0.1-0.8) 10^3/uL Absolute Eosinophils (0.0-0.7) 10^3/uL Absolute Basophils (0.0-0.2) 10^3/uL RBC Morphology PT 11.0 (9.1-11.1) sec INR 1.1 (0.9-1.1) VBG pH (7.31-7.41) VBG pCO2 (41-51) mmHg VBG pO2 mmHg VBG HCO3 (23-28) mmol/L VBG Total CO2 (24-29) mmol/L VBG O2 Saturation % VBG Base Excess (-2-3) mmol/L VBG Lactate (0.6-1.4) mmol/L Sodium 147 H (136-145) mmol/L Potassium 3.7 (3.5-5.1) mmol/L Chloride 109 H (98-107) mmol/L Carbon Dioxide 28.5 (21.0-32.0) mmol/L Anion Gap 9.5 (3-11) mmol/L BUN 7 (7-18) mg/dL Creatinine 1.0 (0.70-1.30) mg/dL Est GFR (CKD-EPI 2020) 111.19 (mL/min/1.73m2) Glucose 92 (74-106) mg/dL Calcium 9.1 (8.5-10.1) mg/dL Total Bilirubin 0.51 (0.2-1.0) mg/dL AST 16 (15-37) U/L ALT 28 (16-63) U/L Alkaline Phosphatase 132 H (46-116) U/L Troponin I (<or=76) ng/L Total Protein 7.8 (6.4-8.2) g/dL Albumin 3.5 (3.4-5.0) g/dL Lipase (16-77) U/L TSH 2.90 Cancelled Urine Color Yellow (Yellow) Urine Clarity Clear (Clear) Urine pH 7.0 (5-8) Ur Specific Weed 1.015 (1.005-1.025) Urine Protein Negative (Neg-Trace) mg/dL Urine Ketones Negative (Negative) mg/dL Urine Blood Negative (Negative) Urine Nitrite Negative (Negative) Urine Bilirubin Negative (Negative) Urine Urobilinogen 0.2 (Up to 0.2) mg/dL Ur Leukocyte Esterase Negative (Negative) Urine Glucose Negative (Negative) mg/dL Urine Opiates Screen Negative (Negative) Ur Buprenorphine Pending Ur Norbuprenorphine Pending Urine Methadone Screen Negative (Negative) Urine Fentanyl Screen Pending Ur Barbiturates Screen Negative (Negative) Ur Tricyclics Screen Negative (Negative) Ur Amphetamines Screen Negative (Negative) U Benzodiazepines Scrn Negative (Negative) Urine Cocaine Screen Negative (Negative) Ur THC Screen Positive A (Negative) Ethyl Alcohol (<10) mg/dL Urine Xylazine Pending B. divergens/MO-1 PCR Pending Babesia duncani (PCR) Pending Babesia microti DNA PCR Pending COVID-19 Source SARS-CoV-2 (PCR) (Negative) E.chaffeensis DNA (PCR) Pending E.ewingii/canis DNA PCR Pending E.muris eauclairensis (PCR) Pending Influenza Type A (PCR) (Negative) Influenza Type B (PCR) (Negative) RSV (PCR) (Negative) A. phagocytophilum (PCR) Pending Blood B. miyamotoi (PCR) Pending 05/18/24 05/18/24 05/18/24 Range/Units 21:35 20:25 19:34 WBC 30.99 H* (4.4-10.8) 10^3/uL RBC 6.00 H (4.36-5.78) 10^6/uL Hgb 16.2 (13.5-17.5) g/dL Hct 49.4 (40.0-50.0) % MCV 82 (80-95) fL MCH 27.0 (27.0-33.0) pg MCHC 32.8 (32.0-36.0) % RDW 14.5 H (11.8-14.1) % Plt Count 456 H (130-400) 10^3/uL MPV 9.2 (8.0-11.0) fL Immature Gran % 0.7 % Neutrophils % 89.2 % Lymphocytes % 4.8 % Monocytes % 4.5 % Eosinophils % 0.3 % Basophils % 0.5 % Nucleated RBC % 0.0 (0.0-0.3) % Absolute Neutrophils 27.64 H (1.2-6.7) 10^3/uL Absolute Lymphocytes 1.49 (1.2-3.4) 10^3/uL Absolute Monocytes 1.39 H (0.1-0.8) 10^3/uL Absolute Eosinophils 0.09 (0.0-0.7) 10^3/uL Absolute Basophils 0.15 (0.0-0.2) 10^3/uL RBC Morphology Normal PT (9.1-11.1) sec INR (0.9-1.1) VBG pH 7.36 (7.31-7.41) VBG pCO2 50 (41-51) mmHg VBG pO2 24 mmHg VBG HCO3 28 (23-28) mmol/L VBG Total CO2 25 (24-29) mmol/L VBG O2 Saturation 40 % VBG Base Excess 3 (-2-3) mmol/L VBG Lactate 1.2 (0.6-1.4) mmol/L Sodium 145 (136-145) mmol/L Potassium 3.7 (3.5-5.1) mmol/L Chloride 107 (98-107) mmol/L Carbon Dioxide 28.1 (21.0-32.0) mmol/L Anion Gap 9.9 (3-11) mmol/L BUN 10 (7-18) mg/dL Creatinine 1.0 (0.70-1.30) mg/dL Est GFR (CKD-EPI 2020) 111.19 (mL/min/1.73m2) Glucose 101 (74-106) mg/dL Calcium 9.6 (8.5-10.1) mg/dL Total Bilirubin 0.34 (0.2-1.0) mg/dL AST 17 (15-37) U/L ALT 31 (16-63) U/L Alkaline Phosphatase 141 H (46-116) U/L Troponin I 7 7 (<or=76) ng/L Total Protein 8.5 H (6.4-8.2) g/dL Albumin 3.9 (3.4-5.0) g/dL Lipase 26 (16-77) U/L TSH Urine Color (Yellow) Urine Clarity (Clear) Urine pH (5-8) Ur Specific Weed (1.005-1.025) Urine Protein (Neg-Trace) mg/dL Urine Ketones (Negative) mg/dL Urine Blood (Negative) Urine Nitrite (Negative) Urine Bilirubin (Negative) Urine Urobilinogen (Up to 0.2) mg/dL Ur Leukocyte Esterase (Negative) Urine Glucose (Negative) mg/dL Urine Opiates Screen (Negative) Ur Buprenorphine Ur Norbuprenorphine Urine Methadone Screen (Negative) Urine Fentanyl Screen Ur Barbiturates Screen (Negative) Ur Tricyclics Screen (Negative) Ur Amphetamines Screen (Negative) U Benzodiazepines Scrn (Negative) Urine Cocaine Screen (Negative) Ur THC Screen (Negative) Ethyl Alcohol < 3.0 (<10) mg/dL Urine Xylazine B. divergens/MO-1 PCR Babesia duncani (PCR) Babesia microti DNA PCR COVID-19 Source SARS-CoV-2 (PCR) (Negative) E.chaffeensis DNA (PCR) E.ewingii/canis DNA PCR E.muris eauclairensis (PCR) Influenza Type A (PCR) (Negative) Influenza Type B (PCR) (Negative) RSV (PCR) (Negative) A. phagocytophilum (PCR) Blood B. miyamotoi (PCR) 05/18/24 Range/Units 19:31 WBC (4.4-10.8) 10^3/uL RBC (4.36-5.78) 10^6/uL Hgb (13.5-17.5) g/dL Hct (40.0-50.0) % MCV (80-95) fL MCH (27.0-33.0) pg MCHC (32.0-36.0) % RDW (11.8-14.1) % Plt Count (130-400) 10^3/uL MPV (8.0-11.0) fL Immature Gran % % Neutrophils % % Lymphocytes % % Monocytes % % Eosinophils % % Basophils % % Nucleated RBC % (0.0-0.3) % Absolute Neutrophils (1.2-6.7) 10^3/uL Absolute Lymphocytes (1.2-3.4) 10^3/uL Absolute Monocytes (0.1-0.8) 10^3/uL Absolute Eosinophils (0.0-0.7) 10^3/uL Absolute Basophils (0.0-0.2) 10^3/uL RBC Morphology PT (9.1-11.1) sec INR (0.9-1.1) VBG pH (7.31-7.41) VBG pCO2 (41-51) mmHg VBG pO2 mmHg VBG HCO3 (23-28) mmol/L VBG Total CO2 (24-29) mmol/L VBG O2 Saturation % VBG Base Excess (-2-3) mmol/L VBG Lactate (0.6-1.4) mmol/L Sodium (136-145) mmol/L Potassium (3.5-5.1) mmol/L Chloride (98-107) mmol/L Carbon Dioxide (21.0-32.0) mmol/L Anion Gap (3-11) mmol/L BUN (7-18) mg/dL Creatinine (0.70-1.30) mg/dL Est GFR (CKD-EPI 2020) (mL/min/1.73m2) Glucose (74-106) mg/dL Calcium (8.5-10.1) mg/dL Total Bilirubin (0.2-1.0) mg/dL AST (15-37) U/L ALT (16-63) U/L Alkaline Phosphatase (46-116) U/L Troponin I (<or=76) ng/L Total Protein (6.4-8.2) g/dL Albumin (3.4-5.0) g/dL Lipase (16-77) U/L TSH Urine Color (Yellow) Urine Clarity (Clear) Urine pH (5-8) Ur Specific Weed (1.005-1.025) Urine Protein (Neg-Trace) mg/dL Urine Ketones (Negative) mg/dL Urine Blood (Negative) Urine Nitrite (Negative) Urine Bilirubin (Negative) Urine Urobilinogen (Up to 0.2) mg/dL Ur Leukocyte Esterase (Negative) Urine Glucose (Negative) mg/dL Urine Opiates Screen (Negative) Ur Buprenorphine Ur Norbuprenorphine Urine Methadone Screen (Negative) Urine Fentanyl Screen Ur Barbiturates Screen (Negative) Ur Tricyclics Screen (Negative) Ur Amphetamines Screen (Negative) U Benzodiazepines Scrn (Negative) Urine Cocaine Screen (Negative) Ur THC Screen (Negative) Ethyl Alcohol (<10) mg/dL Urine Xylazine B. divergens/MO-1 PCR Babesia duncani (PCR) Babesia microti DNA PCR COVID-19 Source Nasopharynx SARS-CoV-2 (PCR) Negative (Negative) E.chaffeensis DNA (PCR) E.ewingii/canis DNA PCR E.muris eauclairensis (PCR) Influenza Type A (PCR) Negative (Negative) Influenza Type B (PCR) Negative (Negative) RSV (PCR) Negative (Negative) A. phagocytophilum (PCR) Blood B. miyamotoi (PCR) 05/18/24 20:00 Blood Culture - Pending Blood 05/18/24 19:31 Blood Culture - Pending Blood Intake and Output - 24 Hour Total 05/18/24 18:56 thru 05/19/24 10:32 Intake Total 2433.333 Output Total 600 Balance 1833.333 Weight 102 kg Intake: IV 2433.333 Output: Urine 600 Other: Urine Color Pale Urine Appearance Clear Urine Odor Normal Falls Risk Assessment History of Falls No History 05/19/24 01:02 Contributing Factors Unstable 05/19/24 01:02 Ambulatory Aids Independent 05/19/24 01:02 Tubes/Lines With any additional score 05/19/24 01:02 Gait Evaluation No gait disturbance 05/19/24 01:02 Cognition No cognitive impairment 05/19/24 01:02 Fall Total Score 23 05/19/24 01:02 Level of Risk Standard/Low Risk 05/19/24 01:02 Problems (Last Reviewed 05/18/24 @ 23:02 by Samuel Nieto) Asthma exacerbation (Acute) Purulent bronchitis (Acute) HTN (hypertension) (Chronic) Gastroenteritis (Acute) Steatohepatitis (Chronic) Sepsis (Acute) v v v v v v v v v Sending and/or Receiving Nurses: Please use comment section below to note any information pertinent to the patient hand-off not included above. Information / Comments: Patient resting calmly in room with no complaints. Report received from: ICU nursing staff at 1045.
[2024-05-19] MEDS: Albuterol/Ipratropium 3 ML UPD VIAL UPD ×2 (11:32→18:46)
[2024-05-19] MEDS: Loperamide 2 MG CAP PO (13:04)
[2024-05-19] MEDS: Lactobacillus Acidophilus CAP 1 CAP PO (13:04)
--- NOTE | 2024-05-19 16:23 | W.PM.PROGNOT ---
Date of Service Date of service: 05/19/24 Time of Service: 16:24 Assessment and Plan Assessment and plan (1) Sepsis: Start date: 05/18/24 Status: Acute Assessment and plan: This is a 18-year-old gentleman who has been generally well with upper respiratory symptoms beginning this last week prompting evaluation at the outpatient clinic and then in the ED because of difficulty breathing with asthma exacerbation. He had poor air movement but no hypoxemia with VBG revealing no respiratory alkalosis or compensation and his respiratory rate was low even though he was having dyspnea. This was concerning because of patient admitting to smoking THC and the possibility of other substances being inhaled. He was admitted initially to ICU level of care with his low respiratory rate and markedly elevated WBC though imaging was reassuring. He awakened and stated that he had not slept for days prior to this admission and denies illicit drug use. He was changed over to [facility] level of care and he was not meeting ICU criteria at this time. He will continue close monitoring with treatment of his hypertension with metoprolol and continuation of antibiotics with Zithromax for treatment of bronchitis. There is no indication for Zosyn or Rocephin at this time. If he does well he may be discharged home on oral therapy within 24-48 hours. He does need to establish with a local PCP for chronic care. He is a full code. Pt does have an elevated wbc but it is improving. Will continue with abx coverage and await culture results Qualifiers: Sepsis acute organ dysfunction status: without acute organ dysfunction Sepsis type: sepsis due to unspecified organism Qualified Code(s): A41.9 - Sepsis, unspecified organism (2) Purulent bronchitis: Start date: 05/18/24 Status: Acute Assessment and plan: Continue Zithromax IV. Oral therapy at discharge. There is no indication for Zosyn which was initiated for possible GI source of sepsis initially or Rocephin which was initiated for possible pneumonia initially. (3) Asthma exacerbation: Start date: 05/18/24 Status: Acute Assessment and plan: Patient had asthma as a child and smokes marijuana daily with possible other substances being smoked. He was hypopneic but denied smoking illicit drugs other than THC which is legal though he has used cocaine in the past. It is possible he may have smoked an unknown substance but appears to be awake and not progressing with respiratory suppression at this time. He is not febrile. He does at least have bronchitis which will be treated but because of his slow respiratory rate and alertness improving along with negative imaging for acute pneumonia, he will have Zosyn and Rocephin discontinued but continue on Zithromax which can be converted to oral therapy to go home for treatment of bronchitis. He should continue maintenance inhaler and rescue inhaler at discharge. Qualifiers: Asthma persistence: persistent Asthma severity: moderate Qualified Code(s): J45.41 - Moderate persistent asthma with (acute) exacerbation (4) Gastroenteritis: Start date: 05/18/24 Status: Acute Assessment and plan: Patient did have viral URI and may have a viral gastroenteritis presently with some mild abdominal discomfort in his upper abdomen. He is having no diarrhea or change in bowel habits. He does not have nausea or vomiting. He does have steatorrhea and is moderately obese with no history of diabetes but possible thyroid disease in the past. Initially he was treated with Zosyn because of sepsis but appears to be improving quickly with mostly asthma exacerbation and bronchitis. Zosyn has been discontinued. Patient will be placed on clear fluids and advance diet as tolerated. (5) HTN (hypertension): Status: Chronic Assessment and plan: Patient states his blood pressures always been elevated when measured and has not had a recent medical care. Metoprolol low-dose 25 mg twice daily and can be discharged home on metoprolol succinate 50 mg daily for and a higher dose as needed for blood pressure control. He is tachycardic as well. Qualifiers: Hypertension type: unspecified secondary hypertension Qualified Code(s): I15.9 - Secondary hypertension, unspecified (6) Steatohepatitis: Status: Chronic Assessment and plan: Patient has been overweight most of his life and did have a history of possible hypothyroidism when he was younger. Check TSH and follow-up clinically. Subjective Subjective Interval history since last seen: no new complaints. pt was discussed with multidisciplinary rounds Exam Narrative Exam Narrative: General: Patient appears appropriate for age, moderately obese, alert and oriented x 3 and in no acute distress. Poor eye contact and flattened affect with slow monotonous tone to speech. HEENT: Normocephalic, eyes with pupils equal and reactive to light symmetrically, extraocular movement intact and sclera anicteric. Oropharynx with moist mucosa and normal dentition. Neck: Supple without JVD. Back: Stooped posture without CVA tenderness. Lungs: Poor to fair aeration diffusely with increased expiratory phase and expiratory wheeze without rhonchi or rales. Vesicular breath sounds. Heart: Regular rate and rhythm with no murmur or gallop appreciated. Abdomen: Obese contour, soft and nontender to palpation with no palpable hepatosplenomegaly. Bowel sounds positive all quadrants. Genitalia/rectal: Exam deferred. Skin: Brown, warm and dry. Normal turgor. No rashes. Extremities: Without edema, clubbing or cyanosis. Peripheral pulses intact. Normal joints. Neuro: Cranial nerves II through XII gross intact, no focalized motor deficits. No tremor. Normal tone and symmetrical, histologic DTRs bilaterally. Psych: Flattened affect with depressed mood. Decreased eye contact. Monotonous tone to voice with slow speech. No abnormal thought processes. Remote and recent memory intact. Objective Last Vital Signs Temp 37.2 C 05/19/24 15:18 Pulse 74 05/19/24 15:18 Resp 16 05/19/24 15:18 BP 168/96 H 05/19/24 15:18 Pulse Ox 97 05/19/24 15:18 Laboratory Results - last 24 hr 05/18/24 05/18/24 05/18/24 19:31 19:34 20:25 WBC 30.99 H* RBC 6.00 H Hgb 16.2 Hct 49.4 MCV 82 MCH 27.0 MCHC 32.8 RDW 14.5 H Plt Count 456 H MPV 9.2 Immature Gran % 0.7 Neutrophils % 89.2 Lymphocytes % 4.8 Monocytes % 4.5 Eosinophils % 0.3 Basophils % 0.5 Nucleated RBC % 0.0 Absolute Neutrophils 27.64 H Absolute Lymphocytes 1.49 Absolute Monocytes 1.39 H Absolute Eosinophils 0.09 Absolute Basophils 0.15 RBC Morphology Normal PT INR VBG pH VBG pCO2 VBG pO2 VBG HCO3 VBG Total CO2 VBG O2 Saturation VBG Base Excess VBG Lactate 1.2 Sodium 145 Potassium 3.7 Chloride 107 Carbon Dioxide 28.1 Anion Gap 9.9 BUN 10 Creatinine 1.0 Est GFR (CKD-EPI 2020) 111.19 Glucose 101 Calcium 9.6 Total Bilirubin 0.34 AST 17 ALT 31 Alkaline Phosphatase 141 H Troponin I 7 7 Total Protein 8.5 H Albumin 3.9 Lipase 26 TSH Urine Color Urine Clarity Urine pH Ur Specific [place] Urine Protein Urine Ketones Urine Blood Urine Nitrite Urine Bilirubin Urine Urobilinogen Ur Leukocyte Esterase Urine Glucose Urine Opiates Screen Urine Methadone Screen Ur Barbiturates Screen Ur Tricyclics Screen Ur Amphetamines Screen U Benzodiazepines Scrn Urine Cocaine Screen Ur THC Screen Ethyl Alcohol < 3.0 COVID-19 Source Nasopharynx SARS-CoV-2 (PCR) Negative Influenza Type A (PCR) Negative Influenza Type B (PCR) Negative RSV (PCR) Negative 05/18/24 05/18/24 05/19/24 21:35 22:07 06:35 WBC 29.53 H* RBC 5.83 H Hgb 15.8 Hct 48.5 MCV 83 MCH 27.1 MCHC 32.6 RDW 14.7 H Plt Count 470 H MPV 9.8 Immature Gran % Neutrophils % Lymphocytes % Monocytes % Eosinophils % Basophils % Nucleated RBC % Absolute Neutrophils Absolute Lymphocytes Absolute Monocytes Absolute Eosinophils Absolute Basophils RBC Morphology PT 11.0 INR 1.1 VBG pH 7.36 VBG pCO2 50 VBG pO2 24 VBG HCO3 28 VBG Total CO2 25 VBG O2 Saturation 40 VBG Base Excess 3 VBG Lactate Sodium 147 H Potassium 3.7 Chloride 109 H Carbon Dioxide 28.5 Anion Gap 9.5 BUN 7 Creatinine 1.0 Est GFR (CKD-EPI 2020) 111.19 Glucose 92 Calcium 9.1 Total Bilirubin 0.51 AST 16 ALT 28 Alkaline Phosphatase 132 H Troponin I Total Protein 7.8 Albumin 3.5 Lipase TSH Cancelled Urine Color Yellow Urine Clarity Clear Urine pH 7.0 Ur Specific [place] 1.015 Urine Protein Negative Urine Ketones Negative Urine Blood Negative Urine Nitrite Negative Urine Bilirubin Negative Urine Urobilinogen 0.2 Ur Leukocyte Esterase Negative Urine Glucose Negative Urine Opiates Screen Negative Urine Methadone Screen Negative Ur Barbiturates Screen Negative Ur Tricyclics Screen Negative Ur Amphetamines Screen Negative U Benzodiazepines Scrn Negative Urine Cocaine Screen Negative Ur THC Screen Positive A Ethyl Alcohol COVID-19 Source SARS-CoV-2 (PCR) Influenza Type A (PCR) Influenza Type B (PCR) RSV (PCR) 05/19/24 06:35 WBC RBC Hgb Hct MCV MCH MCHC RDW Plt Count MPV Immature Gran % Neutrophils % Lymphocytes % Monocytes % Eosinophils % Basophils % Nucleated RBC % Absolute Neutrophils Absolute Lymphocytes Absolute Monocytes Absolute Eosinophils Absolute Basophils RBC Morphology PT INR VBG pH VBG pCO2 VBG pO2 VBG HCO3 VBG Total CO2 VBG O2 Saturation VBG Base Excess VBG Lactate Sodium Potassium Chloride Carbon Dioxide Anion Gap BUN Creatinine Est GFR (CKD-EPI 2020) Glucose Calcium Total Bilirubin AST ALT Alkaline Phosphatase Troponin I Total Protein Albumin Lipase TSH 2.90 Urine Color Urine Clarity Urine pH Ur Specific [place] Urine Protein Urine Ketones Urine Blood Urine Nitrite Urine Bilirubin Urine Urobilinogen Ur Leukocyte Esterase Urine Glucose Urine Opiates Screen Urine Methadone Screen Ur Barbiturates Screen Ur Tricyclics Screen Ur Amphetamines Screen U Benzodiazepines Scrn Urine Cocaine Screen Ur THC Screen Ethyl Alcohol COVID-19 Source SARS-CoV-2 (PCR) Influenza Type A (PCR) Influenza Type B (PCR) RSV (PCR) PAWSS Have you Been Recently Intoxicated or Drunk Within the Last 30 days?: Yes Have you Ever Experienced Previous Episodes of Alcohol Withdrawal?: No Have you ever Experienced Withdrawal Seizures?: No Have you ever Experienced Delirium Tremens(DT)s?: No Have you ever undergone Alcohol Rehabilitation Treatment (i.e, inpt ot outpatient treatment programs)?: No Have you ever Experienced Blackouts?: Yes Have you ever Combined Alcohol with other Downers within the last 90 days?: No Have you ever Combined Alcohol with any other Substance of Abuse during the last 90 days?: Yes Positive Blood Alcohol level on Presentation? [PCS.BAL]: No Evidence of Increased Autonomic Activity (i.e. HR>120, tremor, sweating, agitation, nausea)?: No Result: 4 Time Spent with Patient Time Spent with Patient: 25-34 minutes Time was spent: preparing to see the patient(eg.review tests), obtaining and/or reviewing separately otained hiistory, ordering medications,tests, procedures, referring, communicating with other health intensive care medicine specialist, indepentently interpreting results, counseling the patient and care coordination
[2024-05-20 00:01] VITALS: PULSE 77; RESP 16; RESP 2; RESP 9; O2SAT 99
[2024-05-20] MEDS: Albuterol/Ipratropium 3 ML UPD VIAL UPD ×2 (00:01→13:09)
[2024-05-20 00:10] VITALS: PULSE 80; RESP 16; RESP 2; RESP 9; O2SAT 95
[2024-05-20 02:26] VITALS: BP 132/84; PULSE 69; RESP 14; TEMP 36.8; O2SAT 98
[2024-05-20] MEDS: AZITHROMYCIN 500 MG in Normal Saline 250 ML 250 MG IVPB (02:27)
[2024-05-20 06:58] LABS: HCT 42.7 % (40.0-50.0); HGB 14.3 g/dL (13.5-17.5); Lactate 0.6 mmol/L (0.6-1.4); MCH 27.1 pg (27.0-33.0); MCHC 33.5 % (32.0-36.0); MCV 81 fL (80-95); MPV 9.3 fL (8.0-11.0); Platelet Count 404 10^3/uL (130-400); RBC 5.28 10^6/uL (4.36-5.78); RDW 14.6 % (11.8-14.1); WBC 15.48 10^3/uL (4.4-10.8)
[2024-05-20 07:21] VITALS: BP 149/96; PULSE 64; RESP 18; TEMP 37; O2SAT 97
[2024-05-20 07:22] LABS: ALT 20 U/L (16-63); AST 11 U/L (15-37); Albumin 3.1 g/dL (3.4-5.0); Alkaline Phosphatase 107 U/L (46-116); Anion Gap 8.7 mmol/L (3-11); BUN 9 mg/dL (7-18); Bilirubin, Total 0.38 mg/dL (0.2-1.0); CO2 27.3 mmol/L (21.0-32.0); CREATININE 0.9 mg/dL (0.70-1.30); Calcium 8.9 mg/dL (8.5-10.1); Chloride 108 mmol/L (98-107); Estimated GFR 126.17 (mL/min/1.73m2); Glucose 94 mg/dL (74-106); Potassium 3.3 mmol/L (3.5-5.1); Sodium 144 mmol/L (136-145); Total Protein 7.3 g/dL (6.4-8.2)
[2024-05-20] MEDS: Metoprolol 25 MG TAB PO (07:22)
[2024-05-20] MEDS: Normal Saline Flush 10 ML SYR IVP (07:22)
[2024-05-20] MEDS: Lactobacillus Acidophilus CAP 1 CAP PO (07:22)
[2024-05-20] MEDS: Enoxaparin 40 MG/0.4 ML SYR SC (07:22)
[2024-05-20 07:51] LABS: Procalcitonin < 0.10 ng/mL
--- NOTE | 2024-05-20 12:38 | W.PM.DS.N ---
Date of service: 05/20/24 Time of Service: 12:38 DS: Diagnosis Discharge Diagnosis (1) Sepsis: Status: Acute (2) Purulent bronchitis: Status: Acute (3) Asthma exacerbation: Status: Acute (4) Gastroenteritis: Status: Acute (5) HTN (hypertension): Status: Chronic (6) Steatohepatitis: Status: Chronic Discharge Plan Disposition Patient Disposition: Home Condition: Improving Discharge Details Reason For Visit: Sepsis, Hypertension, Hypopnea Admit Date/Time: 05/18/24 23:23 Admit Provider: Samuel Nieto Attending Provider: Samuel Nieto Primary Care Provider: Unknown,Unknown Hospital Course Hospital Course: This is a 18-year-old gentleman who was admitted on the with asthma exacerbation. Was started on Zithromax as well as albuterol. On admission his white count was elevated into the 30,000 range but at discharge it was down to 15,000. Because of this elevation in his white blood count a tickborne illness panel was sent as well. At the time of discharge a drug screen is still pending. In regards to outpatient therapy he will need a PCP and I will send prescriptions for albuterol as well as short dose of prednisone. Of note the patient also has hypertension and I will start him on antihypertensive as well. Will send over prescription for Norvasc 5 mg daily. Home Meds and New Rx's Prescriptions: New metoprolol tartrate 25 mg Tablet 25 mg PO BID Qty: 60 0RF prednisone 10 mg tablet 10 mg PO DAILY Qty: 10 0RF azithromycin 250 mg tablet 250 mg PO DAILY 6 Days Qty: 6 0RF Rx Instructions: start on day 2 of therapy albuterol sulfate [Ventolin HFA] 90 mcg/actuation HFA aerosol inhaler 2 puff inhalation Q6H PRNQty: 6.7 0RF Discharge Instructions Stand Alone Forms: Nursing Discharge Form Referrals: Adeel Sanchez NP [NURSE PRACTITIONER] - (I will call the office tomorrow and get you an appointment and let you know. ) Activity:: Activity as Tolerated Equipment/Supplies:: No Equipment Needed Diet:: As Tolerated Discharge Orders Discharge Orders: Discharge Order (Routine); Ordered 05/20/24 Ordered By: Francis Andrews Discharge Data Discharge Date/Time-TO BE ENTERED AT DEPARTURE: 05/20/24 15:02 DS: Summary Time Spent with Patient providing and/or coordinating discharge services: Greater than 30 minutes Status at Discharge Functional status at discharge: independent ambulation Overall status at discharge: patient is back to baseline Mental Status: mental status grossly normal Speech and Movement: speech and movement normal Mood: congruent mood Affect: normal affect Quality:SDOH Health Related Social Needs: No Data to Display Exam Narrative Exam Narrative: General: Patient appears appropriate for age, moderately obese, alert and oriented x 3 and in no acute distress. Poor eye contact and flattened affect with slow monotonous tone to speech. HEENT: Normocephalic, eyes with pupils equal and reactive to light symmetrically, extraocular movement intact and sclera anicteric. Oropharynx with moist mucosa and normal dentition. Neck: Supple without JVD. Back: Stooped posture without CVA tenderness. Lungs: Poor to fair aeration diffusely with increased expiratory phase and expiratory wheeze without rhonchi or rales. Vesicular breath sounds. Heart: Regular rate and rhythm with no murmur or gallop appreciated. Abdomen: Obese contour, soft and nontender to palpation with no palpable hepatosplenomegaly. Bowel sounds positive all quadrants. Genitalia/rectal: Exam deferred. Skin: Brown, warm and dry. Normal turgor. No rashes. Extremities: Without edema, clubbing or cyanosis. Peripheral pulses intact. Normal joints. Neuro: Cranial nerves II through XII gross intact, no focalized motor deficits. No tremor. Normal tone and symmetrical, histologic DTRs bilaterally. Psych: Flattened affect with depressed mood. Decreased eye contact. Monotonous tone to voice with slow speech. No abnormal thought processes. Remote and recent memory intact. Psych Mental Status: mental status grossly normal Speech and Movement: speech and movement normal Mood: congruent mood Affect: normal affect DS: Data Vitals/I&O Vitals and I&O: Vital Signs Temperature 37 C 05/20/24 07:21 Temperature Source Temporal Artery Scan 05/20/24 07:21 Pulse 64 05/20/24 07:21 Pulse Rhythm Regular 05/19/24 00:07 Pulse Strength Normal 05/19/24 00:07 Pulse 82 05/19/24 08:01 Respiratory Rate 18 05/20/24 07:21 Respiratory Effort Normal 05/19/24 01:02 Respiratory Depth Normal 05/19/24 01:02 Respiratory Pattern Normal 05/19/24 01:02 Blood Pressure 149/96 H 05/20/24 07:21 Blood Pressure Mean 108 05/19/24 08:01 Blood Pressure Position Sitting 05/19/24 00:07 Pulse Oximetry 97 05/20/24 07:21 Oxygen Delivery Method Room Air 05/20/24 07:21 Oxygen Flow Rate 0 05/20/24 07:21 Pain Level 0 05/20/24 07:21 Comment RN notified. 05/19/24 15:18 Comment MD aware of BP 05/18/24 19:32 Intake & Output 05/19/24 05/20/24 05/20/24 23:59 11:59 23:59 Intake Total 800 / 800 Balance 800 / 800 Weight 98.792 kg Intake: IV 250 / 250 Oral 550 / 550 Other: Urine Color Yellow Yellow Urine Appearance Clear Urine Odor Normal Comment Per patient Stool Size Moderate Small Stool Characteristics Soft Soft Liquid Brown Data Completed and Pending Labs on day of discharge: Labs from last 24 hours 05/20/24 06:47 WBC 15.48 H RBC 5.28 Hgb 14.3 Hct 42.7 MCV 81 MCH 27.1 MCHC 33.5 RDW 14.6 H Plt Count 404 H MPV 9.3 VBG Lactate 0.6 Sodium 144 Potassium 3.3 L Chloride 108 H Carbon Dioxide 27.3 Anion Gap 8.7 BUN 9 Creatinine 0.9 Est GFR (CKD-EPI 2020) 126.17 Glucose 94 Calcium 8.9 Total Bilirubin 0.38 AST 11 L ALT 20 Alkaline Phosphatase 107 Total Protein 7.3 Albumin 3.1 L Procalcitonin < 0.10 Preliminary micro results at discharge 05/18/24 20:00 Blood Culture - Preliminary Blood NO GROWTH 24 HOURS 05/18/24 19:31 Blood Culture - Preliminary Blood NO GROWTH 24 HOURS PFSH All Active Problems (Updated 05/19/24 @ 01:42 by Samuel Nieto) Asthma exacerbation (Acute) Purulent bronchitis (Acute) HTN (hypertension) (Chronic) Gastroenteritis (Acute) Steatohepatitis (Chronic) Sepsis (Acute) Social History Smoking/Tobacco Use Status: Current every day Tobacco Type: e-cigarettes Smoking risk assessment performed?: Yes Alcohol Intake: current Alcohol Intake frequency: a few times a month Alcohol type: hard liquor Drug use: Daily Substance use type: marijuana Details: PT states he smokes marijuana daily 05/18/24 Housing: house Do you feel safe at home: Yes Do you feel safe in your relationship?: Yes Time Spent with Patient Time Spent with Patient: <45 minutes Time was spent: preparing to see the patient(eg.review tests), obtaining and/or reviewing separately otained hiistory, ordering medications,tests, procedures, referring, communicating with other health auto care center manager, indepentently interpreting results, counseling the patient and care coordination
--- NOTE | 2024-05-20 12:52 | PDOC.CMDIS ---
Date of service: 05/20/24 Time of Service: 12:52 LACE Index Scoring Tool Questions: Length of Stay (in days): 2 Was the patient admitted via the E.D.?: Yes E.D. Visits: 1 Answers: Total Score: 6 Risk of Readmission: Low Risk Care Management Discharge Plan Reason for Hospitalization: Sepsis, HTN Discharge Plan: Discharge home via private vehicle with friend. Follow up with community providers and discharge plan of care as instructed. Hospital follow up will be made during regular office hours using the tdoc schedule. [facility] referral was made prior to discharge, needs local PCP and community resources. Patient/Family Education Needs: Review discharge instructions, discuss Ask Me Three SDOH Health Related Social Needs: No Data to Display Care Management Referrals: [facility]
[2024-05-20 13:09] VITALS: PULSE 83; RESP 17; RESP 2; O2SAT 96
[2024-05-20 13:15] VITALS: PULSE 86; RESP 18; RESP 2; O2SAT 98
[2024-05-21 11:35] LABS: Fentanyl Scr w/Rfx Confirm Negative ng/mL (<1)
[2024-05-22 11:14] LABS: Xylazine, Confirmation Urine Negative ng/mL (<50)
[2024-05-22 16:43] LABS: Anaplasma phagocytophilum Negative (Negative); B. miyamotoi PCR Negative (Negative); Babesia divergens/MO-1 Negative (Negative); Babesia duncani Negative (Negative); Babesia microti Negative (Negative); Ehrlichia chaffeensis Negative (Negative); Ehrlichia ewingii/canis Negative (Negative); Ehrlichia muris eauclairensis Negative (Negative)
[2024-05-24 14:24] LABS: Buprenorphine Negative ng/mL (Cutoff: 5.0); Norbuprenorphine Negative ng/mL (Cutoff: 2.5)
== END 2024-05-20 15:02 | disposition home or self-care (01) | DRG 872 ==
LOC: ER 21:44 → ICU 05-19 00:30 → MS 05-19 11:05
PROVIDERS: Hospitalist; Admitting Provider Family Medicine; Emergency Provider Physician Assistant; Visit Provider Family Medicine
DX: A41.9 Sepsis, unspecified organism (principal); J45.41 Moderate persistent asthma with (acute) exacerbation; J41.1 Mucopurulent chronic bronchitis; K75.81 Nonalcoholic steatohepatitis (NASH); A08.4 Viral intestinal infection, unspecified; D72.829 Elevated white blood cell count, unspecified; F12.90 Cannabis use, unspecified, uncomplicated; F17.290 Nicotine dependence, other tobacco product, uncomplicated; E66.9 Obesity, unspecified; I10 Essential (primary) hypertension; Z68.31 Body mass index [BMI] 31.0-31.9, adult
CPT/HCPCS: 00123; 36415; 74177; 80053; 80307; 80348; 80375; 82805; 83690; 84145; 85027; 87040; 87637; 87798; 93005; 96365; 96368; 96375; 99285; J1650; 71046; 71260; 80320; 81003; 83605; 84443; 84484; 85025; 85610; 93010; 94640; 94760; 99223; 99231; 99239; J0131; J0456; J0696; J1885; J2543; J3490; J7620

== ENCOUNTER 2024-05-30 15:47 | Emergency (ER) | payer MEDICAID, SELFPAY ==
[2024-05-30] VITALS (9 sets, daily range): BP systolic 130–151; BP diastolic 75–84; PULSE 60–80; RESP 15–22; TEMP 36.2; O2SAT 98–100
--- NOTE | 2024-05-30 15:30 | RT.EKG_ITS ---
APPROVED REPORT Exam: Resting ECG Reason for Exam: syncope Patient Location: E HR:70 bpm ECG Measurements Heart Rate 70 AXIS VA 141 P 29 QRSd 91 QRS 37 QT 361 T 25 QTc 390 Conclusion Sinus rhythm, rate 70 No interval abnormalities Benign early repol pattern No STEMI
--- NOTE | 2024-05-30 15:58 | W.ED.GENAD ---
Discharge Plan Disposition Patient Disposition: Home Condition: Stable Discharge Details Clinical Impression: Pneumonia, Syncope Primary Care Provider: Unknown,Unknown ED Provider: Juanita Lane Home Meds and New Rx's Prescriptions: New amoxicillin 500 mg capsule 1,000 mg PO TID 5 Days Qty: 30 0RF azithromycin 250 mg tablet 250 mg PO DAILY 4 Days Qty: 4 0RF Rx Instructions: start on day 2 of therapy (05/30/2024) No Action albuterol sulfate [Ventolin HFA] 90 mcg/actuation HFA aerosol inhaler 2 puff inhalation Q6H PRNQty: 6.7 0RF metoprolol tartrate 25 mg Tablet 25 mg PO DAILY Discharge Instructions Instructions: Pneumonia, Adult (DC) Additional Instructions: You were seen in the emergency department today for evaluation after a fainting episode. In our department you had a full physical examination performed, had laboratory studies that were reassuring, and had an x-ray that showed a possible early pneumonia. You likely became slightly dehydrated, which is the cause of your fainting, and need to maintain good hydration and nutrition. I have started you on antibiotics which you will take for 5 days. Please take all of this antibiotic until it is gone, even if you start to feel better. You need to follow-up on your primary care appointment at your scheduled visit, or call them to schedule a sooner visit for any symptoms that change, worsen, or persist. You can return to the emergency department if you develop fever or chills that do not respond to medications, change in responsiveness, chest pain, shortness of breath, or any other symptoms that cause you concern. You had blood cultures drawn to look for infection in your bloodstream. If this is positive you will be contacted by phone. Thank you for allowing us to be part of your care HPI General Mode of arrival: EMS. Date/Time Provider Initiated Documentation: 05/30/24 15:55. Limitations to Documentation: no limitations. Information obtained by: patient, EMS and old records reviewed. HPI Narrative: HPI: This is a 18-year-old male patient with a history of asthma, hypertension, and a recent admission to this hospital for bronchitis, discharged 10 days ago, who is brought in by EMS after syncopal episode. The patient was working at [employer] states that he felt like he needed to go to the bathroom, and when he started to walk that direction he felt dizzy and passed out. Coworkers note that he struck his head on the counter, landed on the ground and woke up immediately after. No reported tonic-clonic activity or postictal phase. When EMS arrived on scene the patient was noted to be diaphoretic, appeared unwell, stating that he was not experiencing any pain or injury after that event. He states that he has not felt well for the last few days, and has not been taking his prescribed medications for hypertension due to his general malaise. He does not believe that he has had a fever. He states that he has been drinking but has not had anything to eat all day. Has not had nausea or vomiting. Denies weakness, numbness, changes in vision. Is not experiencing chest pain, shortness of breath, or abdominal pain. Denies changes to bowel or bladder habits. Exam: Gen: awake and alert, appears fatigued. Appears well nourished. HEENT: PERRL, EOMs full and without nystagmus. External ears and nose normal, mucous membranes moist. Neck: Supple, full range of motion, no observable masses. No tenderness or step-offs to palpation of the C spine Lungs: No increased work of breathing, lung sounds clear and equal bilaterally without wheezes, rhonchi, or rales. CV: Heart with regular rate and rhythm, no murmurs auscultated. Strong and symmetrical radial pulses. Abdomen: Soft, nondistended, non-tended to palpation. No rigidity, rebound tenderness, or guarding. MSK: No joint swelling, no redness. Full ROM without limitation, no external traumatic findings. Skin: No rashes or lesions to visualized skin. Normal color, warm, and dry. Neuro: Cranial nerves II-XII intact and symmetrical bilaterally. 5/5 strength in all muscle groups x4 extremities. No sensory deficits. Psych: Appropriate for situation. MDM: This is a 18-year-old male patient presenting for evaluation after syncopal episode. My differential includes but is not limited to orthostasis, vasovagal syncope, certainly considered cardiac arrhythmia. Given the patient's recent admission, I also considered infectious abnormalities including viral upper respiratory infection, pneumonia, bronchitis, sepsis/bacteremia. No urinary symptoms to significantly increase my concern for urinary tract infection. I certainly considered metabolic and electrolyte derangements, kidney injury and dehydration, liver disease. The patient has no characteristic chest pain to significantly increase my concern for ACS, pericarditis or myocarditis. I obtained an EKG, which shows a sinus rhythm with a rate of 70, some findings consistent with benign early repull but no evidence of ischemia, and no interval abnormalities or evidence of long QT, hypertrophic cardiomyopathy, Brugada's, WPW, or ARVD. We will obtain laboratory studies to include CBC, CMP, magnesium, troponin, Fluvid, blood cultures, and will obtain a chest x-ray and urinalysis. The patient received 500 cc of intravenous fluids by EMS prior to arrival. ED Course: I independently interpreted the laboratory studies, which show no significant leukocytosis, anemia, or thrombocytopenia. The chemistry panel is without evidence of electrolyte abnormality, kidney dysfunction, or liver injury. Troponin was negative, urine was noninfectious. COVID and influenza testing negative. Independently reviewed the patient's x-ray, radiology notes an early infiltrate forming in the left lung that is concerning for pneumonia. I did provide the patient with his initial dose of amoxicillin as well as azithromycin for atypicals coverage given her recent mycoplasma outbreak. Only 1 blood culture was able to be obtained, which was sent to the lab. I do not feel that the patient's risk of bacteremia is very high, given his hemodynamic stability, lack of fever, and lack of leukocytosis. At this time, the patient has had a full medical evaluation and is safe for discharge to home. They are hemodynamically stable, ambulatory, and tolerating PO. They are understanding of the follow-up plan and return precautions. They left our facility without incident. Juanita Lane MD Related Data Home Medications ?Medication ?Instructions ?Recorded ?Confirmed albuterol sulfate 90 mcg/actuation 2 puff inhalation Q6H PRN #6.7 05/20/24 05/30/24 aerosol inhaler (Ventolin HFA) grams amoxicillin 500 mg capsule 1,000 mg (2 x 500 mg) PO TID 5 05/30/24 days #30 caps azithromycin 250 mg tablet 250 mg PO DAILY 4 days #4 tabs 05/30/24 metoprolol tartrate 25 mg tablet 25 mg PO DAILY 05/30/24 05/30/24 Previous Rx's ?Medication ?Instructions ?Recorded albuterol sulfate 90 mcg/actuation 2 puff inhalation Q6H PRN #6.7 05/20/24 aerosol inhaler (Ventolin HFA) grams amoxicillin 500 mg capsule 1,000 mg (2 x 500 mg) PO TID 5 05/30/24 days #30 caps azithromycin 250 mg tablet 250 mg PO DAILY 4 days #4 tabs 05/30/24 Allergies Allergy/AdvReac Type Severity Reaction Status Date / Time seasonal allergies Allergy Unknown runny nose Uncoded 05/30/24 15:59 General Stated Complaint: Dizzy/Sync QUIRINO: 3 Course Vital Signs Vital signs: Vital Signs Temperature 36.2 C L 05/30/24 15:46 Pulse 68 05/30/24 15:46 Respiratory Rate 16 05/30/24 15:46 Blood Pressure 151/75 H 05/30/24 15:46 Pulse Oximetry 100 05/30/24 15:46 Temperature 36.2 C L 05/30/24 15:46 Temperature Source Temporal Artery Scan 05/30/24 15:46 Pulse 68 05/30/24 15:46 Respiratory Rate 16 05/30/24 15:46 Blood Pressure 151/75 H 05/30/24 15:46 Blood Pressure Position Supine 05/30/24 15:46 Pulse Oximetry 100 05/30/24 15:46 Oxygen Delivery Method Room Air 05/30/24 15:46 Oxygen Flow Rate 0 05/30/24 15:46 Pain Level 0 05/30/24 15:46 Medical Decision Making Quality:SDOH Health Related Social Needs: No Data to Display PFSH All Active Problems (Updated 05/30/24 @ 17:[address] MD) Syncope (Chronic) Pneumonia (Acute) Asthma exacerbation (Acute) Purulent bronchitis (Acute) HTN (hypertension) (Chronic) Social History Smoking/Tobacco Use Status: Current every day Tobacco Type: e-cigarettes Smoking risk assessment performed?: Yes Alcohol Intake: current Alcohol Intake frequency: a few times a month Alcohol type: hard liquor Drug use: Occasionally Substance use type: marijuana Details: smokes marijuana a few times a week Housing: house Do you feel safe at home: Yes Do you feel safe in your relationship?: Yes
[2024-05-30 16:13] LABS: Abs Immature Grans 0.04 10^3/uL (0.0-0.06); Absolute Basophil Count 0.07 10^3/uL (0.0-0.2); Absolute Eosinophil Count 0.65 10^3/uL (0.0-0.7); Absolute Lymphocyte Count 2.54 10^3/uL (1.2-3.4); Absolute Monocyte Count 0.38 10^3/uL (0.1-0.8); Absolute Neutrophil Count 6.78 10^3/uL (1.2-6.7); Basophils % 0.7 %; Eosinophils % 6.2 %; HCT 46.6 % (40.0-50.0); Immature Grans % 0.4 %; Lymphocytes % 24.3 %; MCH 27.1 pg (27.0-33.0); MCHC 32.2 % (32.0-36.0); MCV 84 fL (80-95); Monocytes % 3.6 %; Neutrophils % 64.8 %; RBC 5.53 10^6/uL (4.36-5.78); RDW 14.9 % (11.8-14.1); RDW-SD 45.3 fL; WBC 10.46 10^3/uL (4.4-10.8)
--- OUTSIDE RECORDS SUMMARY | 2024-05-30 16:16 | XMS_ITS | Encounter Summary ---
Author Organization [facility] Address [address] [place] [address] Care Team Providers Care Vocational Aide Name Role Phone Tish Thomas [employer] Primary Care Provider [phone] Encounter Details Date Type Department Care Team (Late st Contact Info) Description 01/07/2021 Lab Requisition [facility] Pathology & Laboratory Medicine - [facility] [address], [place] [address] Outr Resulting Lab, Provider Social History Tobacco Use Types Packs/Day Years Used Date Smoking Tobacco: Never Assessed Sex and Gender Information Value Date Recorded Sex Assigned at Not on file Legal Sex Male 13:44 EDT Gender Identity Male 12/15/2021 11:04 EDT Sexual Orientation Not on file documented as of this encounter Plan of Treatment Not on file documented as of this encounter Procedures Procedure Name Priority Date/Time Associated Diagnosis Comments T4 FREE Routine 01/07/2021 12:18 EDT HEMOGLOBIN A1C Routine 01/07/2021 12:18 EDT documented in this encounter Results * (ABNORMAL) T4 FREE (01/07/2021 12:18 EDT) T4, Free 0.7(L) 0.8 - 2.0 ng/dL 01/07/2021 22:09 EDT [facility] Blood VENOUS BLOOD / Unknown 01/07/2021 12:18 EDT 01/07/2021 21:37 EDT us Provider Outr Resulting Lab CHEMISTRY & BLOOD GA S ORDERABLES Final Result Performing Organization Address [facility]/ZIP Co de Phone Number [facility] [address] [place] [address] * (ABNORMAL) HEMOGLOBIN A1C (01/07/2021 12:18 EDT) Hemoglobin A1c 6.0(H) <5.7 % 01/07/2021 22:54 EDT [facility] Comment: New methodology in use 10/02/2020 Glycemic Status References: Normal: ??<5.7% Pre-Diabetes: ??5.7% - 6.4% Diagnostic of Diabetes: ??> or = 6.5% (if confirmed) Goals for glycemic control in diabetics (ADA 2017): <7.0% target for non adults with diabetes. <7.5% target for children and adolescents with Type I Diabetes. More or less stringent targets may be appropriate for individual patients. Est Avg Glucose 126 mg/dL 22:54 EDT [facility] Comment:The eAG represents t he A1c result expressed as average glucose in mg/dL. Blood VENOUS BLOOD / Unknown 01/07/2021 12:18 EDT 01/07/2021 21:37 EDT us Provider Outr Resulting Lab CHEMISTRY & BLOOD GA S ORDERABLES Final Result Performing Organization Address [facility] Co de Phone Number [facility] [address] [place] [address] documented in this encounter Visit Diagnoses Not on filedocumented in this encounter Care Teams Vocational Aide Relationship Specialty Start Date End Date Tish Thomas NP [address] [place] [address] PCP - General 12/15/21 documented as of this encounter
--- OUTSIDE RECORDS SUMMARY | 2024-05-30 16:16 | XMS_ITS | Encounter Summary ---
Author Organization [facility] Address [address] [place] [address] Care Team Providers Care Examiner Of Currency Name Role Phone Tish Thomas SUPERVISORY INVESTIGATIVE SPECIALIST Primary Care Provider [phone] Encounter Details Date Type Department Care Team (Late st Contact Info) Description 05/19/2024 Lab Requisition [facility] Pathology & Laboratory Medicine - [facility] [address] [place], [place] [address] Outr Resulting Lab, Provider Social History Tobacco Use Types Packs/Day Years Used Date Smoking Tobacco: Some Days Cigars Smokeless Tobacco: Former Comments:Vape and cigars Alcohol Use Standard Drinks/Week Comments Yes 0 (1 standard drink = 0.6 oz pur e alcohol) PHQ-2 Answer Date Recorded PHQ-2 SUBTOTAL 0 06/21/2022 Sex and Gender Information Value Date Recorded Sex Assigned at Not on file Legal Sex Male 13:44 EDT Gender Identity Male 12/15/2021 11:04 EDT Sexual Orientation Not on file documented as of this encounter Plan of Treatment Not on file documented as of this encounter Procedures Procedure Name Priority Date/Time Associated Diagnosis Comments XYLAZINE CONFIRMATION, U Routine 05/18/2024 22:07 EST documented in this encounter Results * XYLAZINE CONFIRMATION, U (05/18/2024 22:07 EST) Xylazine Confirmation Negative <50 ng/mL 05/22/2024 11:09 EST [facility] Urine URINE / Unknown 05/18/2024 2 2:07 EST 05/19/2024 21:33 EST Narrative [facility] - 05/22/2024 11:09 EST Testing performed by: [facility] [address], [address], [place] [address] Paint Spray Tender: Jorge Price MD; CLIA # [id number] us Provider Outr Resulting Lab GEN LAB UNIT COLLECT ORDERABLES Final Result Performing Organization Address City/State/[facility] Co de Phone Number [facility] [address], [address] [place] [address], [facility] [phone] documented in this encounter Visit Diagnoses Not on filedocumented in this encounter Care Teams Examiner Of Currency Relationship Specialty Start Date End Date Tish Thomas NP [address] [place] [address] PCP - General 12/15/21 documented as of this encounter
--- OUTSIDE RECORDS SUMMARY | 2024-05-30 16:16 | XMS_ITS | Encounter Summary ---
Author Organization [facility] Address [address] [place] [address] Care Team Providers Care Curve Cleaner Name Role Phone Tish Thomas SUSAN Primary Care Provider [phone] Encounter Details Date Type Department Care Team (Late st Contact Info) Description 12/15/2021 11:00 EDT Phlebotomy Only [facility] Services - [address] [address] Electronic Assembler, [facility] Obesity, unspecified classification, unspecified obesity type, unspecified whether serious comorbidity present Social History Tobacco Use Types Packs/Day Years [...] Procedure Name Priority Date/Time Associated Diagnosis Comments COMPLETE BLOOD COUNT Routine 12/15/2021 11:39 EDT Obesity, unspecified classification, unspecified obesity type, unspecified whether serious comorbidity present T3, TOTAL Routine 12/15/2021 11:39 EDT Obesity, unspecified classification, unspecified obesity type, unspecified whether serious comorbidity present TSH Routine 12/15/2021 11:39 EDT Obesity, unspecified classification, unspecified obesity type, unspecified whether serious comorbidity present T4 FREE Routine 12/15/2021 11:39 EDT Obesity, unspecified classification, unspecified obesity type, unspecified whether serious comorbidity present HEMOGLOBIN A1C Routine 12/15/2021 11:39 EDT Obesity, unspecified classification, unspecified obesity type, unspecified whether serious comorbidity present LIPID PROFILE (INCLUDES CHOLESTEROL, TRIGLYCERIDES, HDL, LDL) Routine 12/15/2021 11:39 EDT Obesity, unspecified classification, unspecified obesity type, unspecified whether serious comorbidity present COMPREHENSIVE METABOLIC PANEL (CMP) Routine 12/15/2021 11:39 EDT Obesity, unspecified classification, unspecified obesity type, unspecified whether serious comorbidity present documented in this encounter Results * (ABNORMAL) T4 FREE (12/15/2021 11:39 EDT) T4, Free 0.6(L) 0.8 - 1.4 ng/dL 12/15/2021 13:02 EDT [facility] Blood VENOUS BLOOD / Unknown Venipuncture / Unknown 12/15/2021 11:39 EDT 12/15/2021 11:39 EDT May Talbot APRN CHEMISTRY & BLOOD GAS ORDER YU Final Result Performing Organization Address [facility] Co de Phone Number [facility] [address] [place] [id number] * T3, TOTAL (12/15/2021 11:39 EDT) T3, Total 144 127 - 339 ng/dL 12/15/2021 13:16 EDT [facility] Comment: NOTE: ---- Interpret Pediatric Total T3 values in light of all clinical information - false elevations in Total T3 have been reported for a small percentage of Pediatric patients. Blood VENOUS BLOOD / Unknown Venipuncture / Unknown 12/15/2021 11:39 EDT 12/15/2021 11:39 EDT May Talbot APRN CHEMISTRY & BLOOD GAS ORDER YU Final Result Performing Organization Address City/[facility] Co de Phone Number [facility] [address] [place] [address] * TSH (12/15/2021 11:39 EDT) TSH 1.93 0.47 - 4.00 mIU/L 12/15/2021 13:16 EDT [facility] Blood VENOUS BLOOD / Unknown Venipuncture / Unknown 12/15/2021 11:39 EDT 12/15/2021 11:39 EDT Narrative [facility] - 12/15/2021 13:16 EDT The results of this assay can be falsely lowered due to the consumption of Biotin. May Talbot APRN CHEMISTRY & BLOOD GAS ORDER YU Final Result Performing Organization Address [facility] Co de Phone Number [facility] [address] [place] [address] * (ABNORMAL) HEMOGLOBIN A1C (12/15/2021 11:39 EDT) Pathologist [facility] Hemoglobin A1c 5.8(H) <5.7 % 12/15/2021 14:08 EDT [facility] Comment: Glycemic Status References: Normal: ??<5.7% Pre-Diabetes: ??5.7% - 6.4% Diagnostic of Diabetes: ??> or = 6.5% (if confirmed) Est Avg Glucose 120 mg/dL 14:08 T [facility] Comment:The eAG represents t he A1c result expressed as average glucose in mg/dL. Blood VENOUS BLOOD / Unknown Venipuncture / Unknown 12/15/2021 11:39 EDT 12/15/2021 11:39 EDT May Talbot APRN CHEMISTRY & BLOOD GAS ORDER YU Final Result Performing Organization Address [facility] Co de Phone Number [facility] [address] [place] [address] * (ABNORMAL) LIPID PROFILE (INCLUDES CHOLESTEROL, TRIGLYCERIDES, HDL, LDL) (12/15/2021 11:39 EDT) Cholesterol 196(H) <170 mg/dL 12/15/2021 12:44 EDT [facility] Comment:Note that therapeuti c goals will differ between patients based on cardiac risk factors and current medical therapy. HDL 42(L) >45 mg/dL 12/15/2021 12:44 EDT [facility] Comment:Note that therapeuti c goals will differ between patients based on cardiac risk factors and current medical therapy. LDL, Calculated 126(H) <110 mg/dL 12:44 T [facility] Comment:Note that therapeuti c goals will differ between patients based on cardiac risk factors and current medical therapy. Triglyceride 139(H) <90 mg/dL 12/15/2021 12:44 T [facility] Comment:Note that therapeuti c goals will differ between patients based on cardiac risk factors and current medical therapy. Chol/HDL Ratio 4.7 See Note 12/15/2021 12:44 T [facility] Comment:No reference range h as been established for CHOL/HDL ratio. Non HDL Cholesterol 154(H) <120 mg/dL 12/15/2021 12:44 [facility] Blood VENOUS BLOOD / Unknown Venipuncture / Unknown 12/15/2021 11:39 EDT 12/15/2021 11:39 EDT May Talbot APRN CHEMISTRY & BLOOD GAS ORDER YU Final Result [facility] [address] [place] [address] * COMPREHENSIVE METABOLIC PANEL (CMP) (12/15/2021 11:39 EDT) Sodium 143 136 - 145 mmol/L 12/15/2021 12:44 T [facility] Potassium 4.8 3.5 - 5.0 mmol/L 12/15/2021 12:44 T [facility] Chloride 106 96 - 110 mmol/L 12/15/2021 12:44 [facility] CO2 Total 26 22 - 32 mmol/L 12/15/2021 12:44 [facility] Glucose 94 70 - 100 mg/dL 12/15/2021 12:44 [facility] BUN 13 7 - 21 mg/dL 12/15/2021 12:44 [facility] Creatinine 0.81 0.58 - 1.01 mg/dL 12/15/2021 12:44 [facility] Total Protein 7.5 6.6 - 8.3 g/dL 12/15/2021 12:44 [facility] Albumin 4.3 4.2 - 5.3 g/dL 12/15/2021 12:44 [facility] Alkaline Phosphatase 153 88 - 315 U/L 12/15/2021 12:44 [facility] AST 24 24 - 49 U/L 12/15/2021 12:44 [facility] ALT 27 22 - 49 U/L 12/15/2021 12:44 [facility] Bilirubin, Total <0.5 <=0.8 mg/dL 12/15/2021 12:44 [facility] Calcium 9.6 8.9 - 10.2 mg/dL 12/15/2021 12:44 [facility] Albumin/Globulin Ratio 1.3 1.0 - 2.5 12/15/2021 12:44 [facility] Anion Gap 11 5 - 14 12/15/2021 12:44 [facility] Blood VENOUS BLOOD / Unknown Venipuncture / Unknown 12/15/2021 11:39 EDT 12/15/2021 11:39 [facility] - 12/15/2021 12:44 EDT NOTE: eGFR is not calculated for patients < 18 years old. us May Talbot FURNISHINGS CONSERVATOR CHEMISTRY & BLOOD GAS ORDER YU Final Result [facility] [address] [place] [address] * (ABNORMAL) COMPLETE BLOOD COUNT (12/15/2021 11:39 EDT) WBC 9.05 3.13 - 12.43 K/cmm 12/15/2021 12:26 [facility] RBC 6.27(H) 3.97 - 5.88 M/cmm 12/15/2021 12:26 [facility] Hemoglobin 16.6(H) 11.2 - 16.4 gm/dL 12/15/2021 12:26 [facility] HCT 51.2(H) 33.7 - 48.7 % 12/15/2021 12:26 [facility] MCV 82 74 - 94 fl 12/15/2021 12:26 [facility] MCH 26.5 23.1 - 31.7 pg 12/15/2021 12:26 [facility] MCHC 32.4 30.6 - 35.3 gm/dL 12/15/2021 12:26 [facility] RDW-CV 14.1 11.5 - 16.5 % 12/15/2021 12:26 [facility] RDW-SD 41.0 No reference range currently available for patients under 18 fl 12/15/2021 12:26 [facility] PLT 422 152 - 426 K/cmm 12/15/2021 12:26 [facility] MPV 10.2 8.9 - 12.8 fl 12/15/2021 12:26 [facility] Blood VENOUS BLOOD / Unknown Venipuncture / Unknown 12/15/2021 11:39 EDT 12/15/2021 11:39 EDT May Talbot APRN HEMATOLOGY & PF4 ORDERABLES Final Result [facility] [address] [place] [address] documented in this encounter Visit Diagnoses Diagnosis Obesity, unspecified classification, unspecified obesity type, unspecified whether serious comorbidity present documented in this encounter Care Teams Curve Cleaner Relationship Specialty Start Date End Date Tish Thomas NP [address] [place] [address] PCP - General 12/15/21 documented as of this encounter
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
--- OUTSIDE RECORDS SUMMARY | 2024-05-30 16:16 | XMS_ITS | Referral Summary ---
Author Organization [facility] Address [address] [place] [address] Care Team Providers Care Systems Test Technician Name Role Phone Tihs Thomas SUSAN Primary Care Provider [phone] Encounters Date Type Department Care Team Description 05/19/2024 Lab Requisition [facility] [address] [address] Outr Resulting Lab, Provider 05/19/2024 Lab Requisition [facility] [address] [address] Outr Resulting Lab, Provider from Last 3 Months Allergies Active Allergy Reactions Criticality Noted Date Comments Levonorgestrel-Ethinyl Estrad 2021 Medications ARIPiprazole (ABILIFY) 5 mg tablet Take 5 mg by mouth daily. Active buPROPion (WELLBUTRIN SR) 150 mg SR tablet Take 150 mg by mouth 2 times daily. Active Social History Tobacco Use Types Packs/Day Years [...] 11:04 EDT Sexual Orientation Not on file Last Filed Vital Signs Vital Sign Reading Time Taken Comments Blood Pressure - - Pulse 85 06/21/2022 1019 EST Temperature 36.8 ??C (98.2 ??F) 06/21/2022 1019 EST Respiratory Rate 18 06/21/2022 1019 EST Oxygen Saturation 99% 06/21/2022 1019 EST Inhaled Oxygen Concentration - - Weight - - Height - - Body Mass Index - - Plan of Treatment Not on file Procedures Procedure Name Priority Date/Time Associated Diagnosis Comments FENTANYL SCREEN WITH REFLEX TO CONFIRMATION, U Routine 05/18/2024 22:07 EST XYLAZINE CONFIRMATION, U Routine 05/18/2024 22:07 EST from Last 3 Months Results * XYLAZINE CONFIRMATION, U (05/18/2024 22:07 EST) Xylazine Confirmation Negative <50 ng/mL 05/22/2024 11:09 EST [facility] Urine URINE / Unknown 05/18/2024 2 2:07 EST 05/19/2024 21:33 EST Narrative [facility] - 05/22/2024 11:09 EST Testing performed by: [facility] [address] [place] [address], [facility] [address] [address] Welding Engineer: Jorge Price MD; CLIA # [id number] us Provider Outr Resulting Lab GEN LAB UNIT COLLECT ORDERABLES Final Result [facility] [address] [place] [address], [facility] [address] [place] [address], [facility] [phone] * FENTANYL SCREEN WITH REFLEX TO CONFIRMATION, U (05/18/2024 22:07 EST) Fentanyl Screen with Reflex to Confirmation, U Negative <1 ng/mL 05/21/2024 11:31 EST [facility] Urine URINE / Unknown 05/18/2024 2 2:07 EST 05/19/2024 21:33 EST Narrative [facility] - 05/21/2024 11:31 EST Testing performed by: [facility] [address] [place] [address], [facility] [address] [address] Welding Engineer: Jorge Price MD; CLIA # [id number] us Provider Outr Resulting Lab URINALYSIS ORDERABLE S Final Result [facility] [address] [facility], [address] [place] [address], [facility] [phone] from Last 3 Months Insurance MEDICAID [place] Care Teams Systems Test Technician Relationship Specialty Start Date End Date Tish Thomas NP [address] [place] [address] PCP - General 12/15/21
--- OUTSIDE RECORDS SUMMARY | 2024-05-30 16:16 | XMS_ITS | Continuity of Care Document ---
Author Organization [facility] Address [address] [place] [address] Care Team Providers Care Ground Intelligence Officer Name Role Phone PAULINA SEPULVEDA Primary Care Physician Encounter BVT Date(s): 07/16/19 - 07/16/[address] [address]- Encounter Diagnosis Infection(Discharge Diagnosis) - 07/16/19 Discharge Disposition: Home or Self Care Attending Physician: SOFIYA BURNS MD Admitting Physician: SOFIYA BURNS MD Allergies, Adverse Reactions, Alerts No Known Allergies Assessment and Plan Diagnostic Tests Pending * Culture Aerobic 07/16/19 * Culture Fungus 07/16/19 Immunizations Given and Recorded Vaccine Date Status [...] hepatitis B pediatric vaccine 02/23/05 Recorded Medications dicloxacillin 500 mg oral capsule 500 mg = 1 cap(s), Oral, TID, 1 cap 3x per day for 10 days., X 10 day(s), # 30 cap(s), 1 Refill(s),08/05/19, Pharmacy: [facility], 1 cap(s) Oral TID,x10 day(s),Instr:1 cap 3x per day for 10 days. Start Date: 07/16/19 Stop Date: 08/05/19 Status: Ordered Focalin XR 25 mg oral capsule, extended release 25 mg = 1 cap(s), Oral, qAM, Fill 06/25/19 for ADHD, # 30 cap(s), 0 Refill(s), Pharmacy: [facility], 1 cap(s) Oral qAM,x30 day(s),Instr:Fill 06/25/19 for ADHD Start Date: 06/25/19 Stop Date: 07/25/19 Status: Ordered Focalin XR 30 mg oral capsule, extended release 30 mg = 1 cap(s), Oral, qAM, Fill 07/16/19, # 30 cap(s), 0 Refill(s), Pharmacy: [facility], 1 cap(s) Oral qAM,x30 day(s),Instr:Fill 07/16/19 Start Date: 07/16/19 Stop Date: 08/15/19 Status: Ordered Focalin XR 30 mg oral capsule, extended release 30 mg = 1 cap(s), Oral, qAM, Fill 08/14/19, # 30 cap(s), 0 Refill(s), Pharmacy: [facility], 1 cap(s) Oral qAM,x30 day(s),Instr:Fill 08/14/19, 08/14/19 Start Date: 07/16/19 Stop Date: 08/15/19 Status: Ordered Focalin XR 35 mg oral capsule, extended release 35 mg = 1 cap(s), Oral, qAM, # 30 cap(s), 0 Refill(s), [facility], 1 cap(s) Oral qAM,x30 day(s) Start Date: 07/12/19 Stop Date: 08/11/19 Status: Ordered mupirocin 2% topical ointment 1 al, TOP, TID, X 10 day(s), # 15 gm, 1 Refill(s), 08/05/19, [facility], 1 al TOP TID,x10 day(s) Start Date: 07/16/19 Stop Date: 08/05/19 Status: Ordered ProAir HFA 90 mcg/inh inhalation aerosol 2 puff(s), NEB, q4hr, ONLY WHEN NEEDED FOR WHEEZING OR SHORTNESS OF BREATH., # 8.5 gm, Refill(s) 3,[facility] Start Date: 05/21/19 Status: Ordered Problem List Condition Effective Dates Status Health Status Inform ant Acne(Confirmed) Active Asthma(Confirmed) 07/04/00 Active ADHD(Confirmed) Active Parent-adopted child problem(Confirmed) 1 Active Defiant behavior(Confirmed) 03/27/18 Active Acne keloidalis nuchae(Confirmed) Active Body mass index (BMI) of 5th [...]
--- OUTSIDE RECORDS SUMMARY | 2024-05-30 16:16 | XMS_ITS | Continuity of Care Document ---
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 10/11/2019 Document Reviewed: 01/31/2018 [email or web address] Patient Education ?? 2020 [facility]. 06/14/2020 00:16:56 Helping Someone Who Is Suicidal Helping Someone Who Is Suicidal Suicide is the act of ending (taking) one's own life. Someone who is thinking about suicide needs immediate help. Even if you do not know what to say or do to help, you can start by letting the person know that you care. Listen to him or her. Then talk about how to get help. Help is available through suicide hotlines, therapy, and other treatments. What are signs that someone is suicidal? Common signs include: ??? Signs of depression, such as: ??? Tearfulness or sadness. ??? Irritability or rage. ??? Problems with eating or sleeping. ??? Feeling guilty or worthless. ??? Loss of interest in things that a person used to enjoy. ??? Feelings of hopelessness or helplessness. ??? Recurrent thoughts of or suicide. ??? Changes in social behaviors and relationships, including: ??? Isolating oneself. ??? Withdrawing from friends and family. ??? Giving away possessions. ??? Saying goodbye. ??? Acting aggressively. ??? Sleeping more or less than usual. ??? Having trouble managing school or work. ??? Talking about feeling hopeless or being a burden. ??? Engaging in risky behaviors, such as drinking more alcohol or using more drugs. What are the risk factors for suicide? Risk factors for suicide include: ??? Having a friend or family member who has by suicide. ??? A history of attempted suicide. ??? Depression or other mental health problems. ??? Being exposed to graphic stories of suicide in the media. ??? Alcohol or drug abuse, especially when combined with a mental illness. ??? A serious physical problem, such as chronic pain. ??? A stressful life event, now or in the past, such as: ??? Divorce or social rejection. ??? Childhood abuse or neglect. ??? Sudden life changes, such as financial crisis or going to intermediate. What should I do if someone is suicidal? If you think someone may be suicidal: ??? Ask him or her directly: Are you thinking about suicide or hurting yourself? Asking that question does not make someone more likely to make a suicide attempt. ??? Avoid giving advice or arguing with the person about the value of his or her life. If a person confides in you that he or she is considering suicide: ??? Take the person seriously. Never ignore comments about suicide. ??? Listen to the person's thoughts and concerns with compassion. ??? Let the person know that you will stay with him or her. ??? Offer to help the person get to a doctor or mental health professional. ??? Remove all weapons and medicines from the person's living area. ??? Do not promise to keep his or her thoughts of suicide a secret. ??? Call a suicide crisis helpline, such as the National Suicide Prevention Lifeline at or text TALK to 998334. Get help right away if: You believe that a person is in immediate danger of hurting himself or herself, or may have thoughts of taking his or her own life. You can: ??? Call a crisis center or a local suicide prevention center. These are often located at hospitals, clinics, community service organizations, social service providers, or health departments. ??? Call a suicide crisis helpline, such as the National Suicide Prevention Lifeline at , or text TALK to 337338. This is open 24 hours a day. ??? Take the person to the nearest emergency department. ??? Call your local emergency services (911 in the [place] ??? The [facility] and human [facility] helpline (211 in the [place] Summary ??? Suicide is the act of ending (taking) one's own life. ??? Suicide can be prevented by knowing the signs and taking action. ??? If you know someone who is showing risk factors for suicide, ask if he or she is thinking abouthurting himself or herself. Take all concerns about suicide seriously, and get support from expertsin mental illness or suicide. ??? If you believe that a person is in immediate danger of hurting himself or herself, or may have thoughts of taking his or her own life, get help right away. This information is not intended to replace advice given to you by your health care provider. Make sure you discuss any questions you have with your health care provider. Document Released: 12/25/2003 Document Revised: 08/23/2019 Document Reviewed: 04/21/2018 [email or web address] Patient Education ?? 2020 [facility]. 06/14/2020 00:16:49 Illegal Drug Use Information, Teen Illegal Drug Use Information, Teen Illegal drugs are chemicals and substances that are illegal to use, sell, or have (possess). Healthcare providers and pharmacies do not use or carry these types of drugs to treat medical problems because they can cause serious side effects and can lead to . Examples of illegal drugs include: ??? Cocaine or crack. ??? Meth (methamphetamine). ??? Bath salts (synthetic cathinones). ??? Heroin. ??? LSD or acid. ??? PCP. ??? Ecstasy. What is drug dependence? Using illegal drugs often leads to dependence or addiction. When you use certain drugs over a long period of time, your brain chemistry changes so that you can no longer function normally without that drug. This is called drug dependence. Drug dependence can cause you to: ??? Have unpleasant feelings when you stop using the drug (withdrawal). ??? Be unable to play sports, have hobbies, or perform at work or school the way you used to be able to, without using the drug. Some drugs make people feel so good that they want to use the drug again and again. This is called drug addiction. People who are addicted spend a lot of time seeking out the drug so that they can get the feeling they want from it. Addiction and dependence can be very hard to overcome. How can illegal drug use and dependence affect me? Using an illegal drug only once can have a major impact on your life. It is possible to from side effects after using a drug just once. If you use an illegal drug repeatedly, you may need to takelarger and larger doses of the drug to experience the feelings you want. Becoming dependent on or addicted to a drug may lead to: ??? Poor performance in sports, school, and hobbies. ??? Withdrawal, if you stop using the drug. ??? Negative effects on your relationships and work performance. It causes others not to trust you.You may avoid or neglect relationships. ??? Frequent lying and crime, such as stealing to get money for drugs. ??? Behaving in ways that do not match your values. Drug addiction can also affect your future by: ??? Limiting your ability to get a good job or go to college. ??? Causing long-term health problems, such as tooth loss, changes in how your skin looks, heart and lung disease, and stomach problems. ??? Putting you at risk for: ??? Overdose. This is a dangerous situation that requires hospitalization and often leads to . ??? [facility] or group home time. ??? A permanent criminal record. What are the benefits of avoiding illegal drug use? Avoiding illegal drug use can: ??? Keep your mind and body healthy. This can help improve your school, work, and athletic performance, and keep your brain focused on things that matter. ??? Keep you from developing drug dependency or addiction. This can help you avoid negative side effects such as withdrawal and overdose. ??? Help you have healthy relationships with your friends and family. ??? Allow you to spend or save your money on things you would like to have, instead of using your money for drugs. ??? Help you have more stable finances. Instead of using your money for drugs, you can: ??? Spend it on things you would like to have. ??? Save it in order to use it in the future. ??? Help you avoid a permanent criminal record, intermediate time, or group home time. Having a clean record allows you to have more job and educational opportunities in the future. What actions can be taken? To avoid using illegal drugs: ??? Find healthy ways to cope with stress, such as exercise, meditation, or spending time with friends. Talk with a trusted adult or your health care provider about how you feel and how to cope with stress. ??? Spend time with people who do not use illegal drugs. If your friends use drugs, make new friends who do not use drugs. ??? Instead of using drugs, do something else, like a game, hobby, or exercise. Find activities that you can do with friends instead of using illegal drugs. ??? Do not be afraid to say no if someone offers you an illegal drug. Speak up about why you do notwant to use drugs. You can be a positive role model for your friends and set a good example for those around you. ??? Talk with a trusted adult, such as a counselor, teacher, classroom technology coach, or health care provider if you or someone you know needs help with drug dependence or addiction. Where can I get more information? You can find more information about illegal drug use, dependence, and addiction from: ??? Your school staff, such as a teacher, nurse, or counselor. ??? National [place] on Drug Abuse: www.teens.drugabuse.gov ??? Office of National Drug Control Policy: www.abovetheinfluence.com ??? Substance Abuse and Mental Health Services Administration, national helpline: 1-668-707-HELP (7074). Contact a health care provider if: ??? You use illegal drugs. ??? You have missed school or work to use illegal drugs. ??? You have lied or stolen to get illegal drugs. ??? You lose interest in things you used to enjoy, like sports or family activities. ??? Your eating or sleeping habits change as a result of drug use. ??? You use medicines or household products to get the same effect as a drug. This is illegal use and can become addictive as well. ??? You stopped illegal drug use previously and you start actively using again (relapse). ??? You want help to change your addictive behavior. Get help right away if: ??? You have thoughts about hurting yourself or others. If you ever feel like you may hurt yourself or others, or have thoughts about taking your own life,get help right away. You can go to your nearest emergency department or call: ??? Your local emergency services (911 in the [place] ??? A suicide crisis helpline, such as the National Suicide Prevention Lifeline at . This is open 24 hours a day. Summary ??? Illegal drugs are chemicals and substances that are illegal to use, sell, or possess. ??? Using illegal drugs often leads to dependence or addiction. This means that you need the drug to feel normal. ??? If you or someone you know uses illegal drugs, find healthy ways to cope with stress and talk to a trusted adult. This information is not intended to replace advice given to you by your health care provider. Make sure you discuss any questions you have with your health care provider. Document Released: 07/16/2016 Document Revised: 12/14/2017 Document Reviewed: 12/14/2017 [employer] Patient Education ?? 2020 [email or web address] Follow Up Care 06/13/2020 18:21:33 With:[facility] Address: [address] [place] [phone] [id number] (1) When:1 to 2 days
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
--- OUTSIDE RECORDS SUMMARY | 2024-05-30 16:16 | XMS_ITS | Clinical Summary ---
Author Organization [facility] Address [address] [place] [address] Care Team Providers Care Wheel Installer Name Role Phone Tish Thomas SUSAN Primary Care Provider [phone] Allergies Active Allergy Reactions Criticality Noted Date Comments Levonorgestrel-Ethinyl Estrad 2021 Medications ARIPiprazole (ABILIFY) 5 mg tablet Take 5 mg by mouth daily. Active buPROPion (WELLBUTRIN SR) 150 mg SR tablet Take 150 mg by mouth 2 times daily. Active Encounters Date Type Department Care Team Description 05/19/2024 Lab Requisition [facility] Pathology & Laboratory Medicine [address] [address] Outr Resulting Lab, Provider 05/19/2024 Lab Requisition [facility] Pathology & Laboratory Medicine [address] [address] Outr Resulting Lab, Provider from Last 3 Months Medical History Medical History Date Comments Psychiatric problem Social History Tobacco Use Types Packs/Day Years [...] 11:04 EDT Sexual Orientation Not on file Obstetrics History Last Filed Vital Signs Vital Sign Reading Time Taken Comments Blood Pressure - - Pulse 85 06/21/2022 1019 EST Temperature 36.8 ??C (98.2 ??F) 06/21/2022 1019 EST Respiratory Rate 18 06/21/2022 1019 EST Oxygen Saturation 99% 06/21/2022 1019 EST Inhaled Oxygen Concentration - - Weight - - Height - - Body Mass Index - - Plan of Treatment Health Maintenance Due Date Last Done Comments Hepatitis C Screen 2004 Hepatitis B Vaccine (1 of 3 - 19+ 3-dose series) 12/24 COVID-19 Vaccine (2023- season) 2024 Procedures Procedure Name Priority Date/Time Associated Diagnosis Comments FENTANYL SCREEN WITH REFLEX TO CONFIRMATION, U Routine 05/18/2024 22:07 EST XYLAZINE CONFIRMATION, U Routine 05/18/2024 22:07 EST from Last 3 Months Results * XYLAZINE CONFIRMATION, U (05/18/2024 22:07 EST) Xylazine Confirmation Negative <50 ng/mL 05/22/2024 11:09 EST [facility] Urine URINE / Unknown 05/18/2024 2 2:07 EST 05/19/2024 21:33 EST Narrative [facility] - 05/22/2024 11:09 EST Testing performed by: [facility] [address] [place] [address], [address], [place] [address] Hot Dip Plater: Jorge Price MD; CLIA # [id number] us Provider Outr Resulting Lab GEN LAB UNIT COLLECT ORDERABLES Final Result [facility] [address] [place] [address], [address] [place] [address], [facility] [phone] * FENTANYL SCREEN WITH REFLEX TO CONFIRMATION, U (05/18/2024 22:07 EST) Fentanyl Screen with Reflex to Confirmation, U Negative <1 ng/mL 05/21/2024 11:31 EST [facility] Urine URINE / Unknown 05/18/2024 2 2:07 EST 05/19/2024 21:33 EST Narrative [facility] - 05/21/2024 11:31 EST Testing performed by: [facility] [address] [facility], [address], [place] [address] Hot Dip Plater: Jorge Price MD; CLIA # [id number] us Provider Outr Resulting Lab URINALYSIS ORDERABLE S Final Result [facility] [address] [facility], [facility] [address] [place] [address], [facility] [phone] from Last 3 Months Insurance [place]ICAID [place] Care Teams Wheel Installer Relationship Specialty Start Date End Date Tish Thomas NP [facility] [place] [address] PCP - General 12/15/21
--- OUTSIDE RECORDS SUMMARY | 2024-05-30 16:16 | XMS_ITS | Encounter Summary ---
Author Organization [facility] Address [address] [place] [address] Care Team Providers Care Floor Surfacer Name Role Phone Unavailable Primary Care Provider Ron e Encounter Details Date Type Department Care Team (Late st Contact Info) Description 11/25/2021 Transcribe Orders [facility] [phone] May Talbot, DAVON [address] [facility] [address] [place] [address] [phone] Obesity, unspecified classification, unspecified obesity type, unspecified whether serious comorbidity present (Primary Dx) Social History Tobacco Use Types Packs/Day Years Used Date Smoking Tobacco: Never Assessed Sex and Gender Information Value Date Recorded Sex Assigned at Not on file Legal Sex Male 13:44 EDT Gender Identity Male 12/15/2021 11:04 EDT Sexual Orientation Not on file documented as of this encounter Plan of Treatment Not on file documented as of this encounter Results * (ABNORMAL) T4 FREE (12/15/2021 11:39 EDT) T4, Free 0.6(L) 0.8 - 1.4 ng/dL 12/15/2021 13:02 EDT [facility] Blood VENOUS BLOOD / Unknown Venipuncture / Unknown 12/15/2021 11:39 EDT 12/15/2021 11:39 EDT us May Talbot OVERHEAD CRANE INSPECTOR CHEMISTRY & BLOOD GAS ORDER YU Final Result [facility] [address] [place] [address] * T3, TOTAL (12/15/2021 11:39 EDT) [facility] T3, Total 144 127 - 339 ng/dL 12/15/2021 13:16 EDT [facility] Comment: NOTE: ---- Interpret Pediatric Total T3 values in light of all clinical information - false elevations in Total T3 have been reported for a small percentage of Pediatric patients. Blood VENOUS BLOOD / Unknown Venipuncture / Unknown 12/15/2021 11:39 EDT 12/15/2021 11:39 EDT May Talbot APRN CHEMISTRY & BLOOD GAS ORDER YU Final Result Performing Organization Address [facility] de Phone Number [facility] [address] [place] [address] * TSH (12/15/2021 11:39 EDT) [facility] TSH 1.93 0.47 - 4.00 mIU/L 12/15/2021 13:16 EDT [facility] Blood VENOUS BLOOD / Unknown Venipuncture / Unknown 12/15/2021 11:39 EDT 12/15/2021 11:39 EDT Narrative [facility] - 12/15/2021 13:16 EDT The results of this assay can be falsely lowered due to the consumption of Biotin. May Talbot APRN CHEMISTRY & BLOOD GAS ORDER YU Final Result Performing Organization Address [facility] de Phone Number [facility] [address] [place] [address] * (ABNORMAL) HEMOGLOBIN A1C (12/15/2021 11:39 EDT) [facility] Hemoglobin A1c 5.8(H) <5.7 % 12/15/2021 14:08 EDT [facility] Comment: Glycemic Status References: Normal: ??<5.7% Pre-Diabetes: ??5.7% - 6.4% Diagnostic of Diabetes: ??> or = 6.5% (if confirmed) Est Avg Glucose 120 mg/dL 14:08 T [facility] Comment:The eAG represents t he A1c result expressed as average glucose in mg/dL. Blood VENOUS BLOOD / Unknown Venipuncture / Unknown 12/15/2021 11:39 EDT 12/15/2021 11:39 EDT us May Adriana Dahiana MAYS CHEMISTRY & BLOOD GAS ORDER YU Final Result [facility] [address] [place] [address] * (ABNORMAL) LIPID PROFILE (INCLUDES CHOLESTEROL, TRIGLYCERIDES, HDL, LDL) (12/15/2021 11:39 EDT) Cholesterol 196(H) <170 mg/dL 12/15/2021 12:44 [facility] Comment:Note that therapeuti c goals will differ between patients based on cardiac risk factors and current medical therapy. HDL 42(L) >45 mg/dL 12/15/2021 12:44 [facility] Comment:Note that therapeuti c goals will differ between patients based on cardiac risk factors and current medical therapy. LDL, Calculated 126(H) <110 mg/dL 12:44 [facility] Comment:Note that therapeuti c goals will differ between patients based on cardiac risk factors and current medical therapy. Triglyceride 139(H) <90 mg/dL 12/15/2021 12:44 T [facility] Comment:Note that therapeuti c goals will differ between patients based on cardiac risk factors and current medical therapy. Chol/HDL Ratio 4.7 See Note 12/15/2021 12:44 [facility] Comment:No reference range h as been established for CHOL/HDL ratio. Non HDL Cholesterol 154(H) <120 mg/dL 12/15/2021 12:44 [facility] Blood VENOUS BLOOD / Unknown Venipuncture / Unknown 12/15/2021 11:39 EDT 12/15/2021 11:39 EDT us May Talbot OVERHEAD CRANE INSPECTOR CHEMISTRY & BLOOD GAS ORDER YU Final Result [facility] [address] [place] [address] * COMPREHENSIVE METABOLIC PANEL (CMP) (12/15/2021 11:39 EDT) Sodium 143 136 - 145 mmol/L 12/15/2021 12:44 [facility] Potassium 4.8 3.5 - 5.0 mmol/L 12/15/2021 12:44 [facility] Chloride 106 96 - 110 mmol/L 12/15/2021 12:44 [facility] CO2 Total 26 22 - 32 mmol/L 12/15/2021 12:44 [facility] Glucose 94 70 - 100 mg/dL 12/15/2021 12:44 [facility] BUN 13 7 - 21 mg/dL 12/15/2021 12:44 [facility] Creatinine 0.81 0.58 - 1.01 mg/dL 12/15/2021 12:44 [facility] Total Protein 7.5 6.6 - 8.3 g/dL 12/15/2021 12:44 [facility] Albumin 4.3 4.2 - 5.3 g/dL 12/15/2021 12:44 [facility] Alkaline Phosphatase 153 88 - 315 U/L 12/15/2021 12:44 [facility] AST 24 24 - 49 U/L 12/15/2021 12:44 [facility] ALT 27 22 - 49 U/L 12/15/2021 12:44 [facility] Bilirubin, Total <0.5 <=0.8 mg/dL 12/15/2021 12:44 [facility] Calcium 9.6 8.9 - 10.2 mg/dL 12/15/2021 12:44 [facility] Albumin/Globulin Ratio 1.3 1.0 - 2.5 12/15/2021 12:44 [facility] Anion Gap 11 5 - 14 12/15/2021 12:44 [facility] Blood VENOUS BLOOD / Unknown Venipuncture / Unknown 12/15/2021 11:39 EDT 12/15/2021 11:39 EDT Narrative [facility] - 12/15/2021 12:44 EDT NOTE: eGFR is not calculated for patients < 18 years old. us May Talbot APRN CHEMISTRY & BLOOD GAS ORDER YU Final Result [facility] [address] [place] [address] * (ABNORMAL) COMPLETE BLOOD COUNT (12/15/2021 11:39 EDT) WBC 9.05 3.13 - 12.43 K/cmm 12/15/2021 12:26 [facility] RBC 6.27(H) 3.97 - 5.88 M/cmm 12/15/2021 12:26 [facility] Hemoglobin 16.6(H) 11.2 - 16.4 gm/dL 12/15/2021 12:26 [facility] HCT 51.2(H) 33.7 - 48.7 % 12/15/2021 12:26 [facility] MCV 82 74 - 94 fl 12/15/2021 12:26 [facility] MCH 26.5 23.1 - 31.7 pg 12/15/2021 12:26 [facility] MCHC 32.4 30.6 - 35.3 gm/dL 12/15/2021 12:26 [facility] RDW-CV 14.1 11.5 - 16.5 % 12/15/2021 12:26 [facility] RDW-SD 41.0 No reference range currently available for patients under 18 fl 12/15/2021 12:26 EDT [facility] PLT 422 152 - 426 K/cmm 12/15/2021 12:26 EDT [facility] MPV 10.2 8.9 - 12.8 fl 12/15/2021 12:26 EDT [facility] Blood VENOUS BLOOD / Unknown Venipuncture / Unknown 12/15/2021 11:39 EDT 12/15/2021 11:39 EDT us May Talbot OVERHEAD CRANE INSPECTOR HEMATOLOGY & PF4 ORDERABLES Final Result [facility] [address] [place] [address] documented in this encounter Visit Diagnoses Diagnosis Obesity, unspecified classification, unspecified obesity type, unspecified whether serious comorbidity present- Primary documented in this encounter
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
--- OUTSIDE RECORDS SUMMARY | 2024-05-30 16:16 | XMS_ITS | Continuity of Care Document ---
Author Organization [facility] Address [address] [place] [address] Care Team Providers Care Gameplay Programmer Name Role Phone PAULINA SEPULVEDA Primary Care Physician Encounter BVT Date(s): 01/23/20 - 01/23/20 [facility] [address] [facility] [place] [address] Encounter Diagnosis Parent-adopted child problem(Discharge Diagnosis) - 01/23/20 Adjustment disorder with depressed mood(Discharge Diagnosis) - 01/23/20 ADHD(Discharge Diagnosis) - 01/23/20 Discharge Disposition: Home Attending Physician: PAULINA SEPULVEDA MD Allergies, Adverse Reactions, Alerts No Known Allergies Assessment and Plan Extracted from: Title:Increasing sertraline for depression Autho r:PAULIAN SEPULVEDA MD Date:01/23/20 1.??ADHD??F90.9 Chart reviewed, patient has 3 different 1 month prescriptions for??Focalin Exar 40 mg, should be all set until late March.?? 2.??Parent-adopted child problem??Z71.89 ??I suggested that even if patient will not go to counseling, mother consider going??for support??and parenting advice. ??She is going to meet with the [facility] manager of case management today, after work, and I discussed she ask about that then 3.??Adjustment disorder with depressed mood??F43.21 ??Since patient is not having any side effects from his medication, and is??not fully??responding, the next step??that makes most sense is to increase his dose to 100 mg.?? I offered to send it in as??a liquid if that would be better for patient, but he prefers??a tablet to liquid. ??Reviewed use of water. ??Reviewed with mother that his??depressed thoughts began before his medication??began, not after, and is more likely to treated then not. ??Nonetheless, if his mood is worse??when increasing the sertraline, they should go back to the 50 mg and review??with??clinician how to taper his medicine and starting a new one. ??I agreed with Dr. Aguillon about transferring him??to [facility], encouraged mother to make an appointment for early February and at that point??make it in in person visit if at all possible so that he can connect??with his new provider. ??I also offered??to??talk directly with his??new provider??to ensure good continuity of care.?? Reviewed with mother that if mood is??much worse, or patient is??actively suicidal, calling [employer]??crisis line [facility]. ??She also can call the [facility]??office about medication questions over the next week. Orders: sertraline, 100 mg = 1 tab(s), Oral, Daily, # 30 tab(s), 2 Refill(s), Pharmacy: [facility], 1 tab(s) Oral Daily,x30 day(s) Entire visit was 40 min. of phone time with patient and for family, over one half an counseling and or coordination of care. Immunizations Given and Recorded Vaccine Date Status [...] COVID, # 90 cap(s), 0 Refill(s), Pharmacy: [facility], 1 cap(s) Oral qAM,x90 day(s),Instr:ADHD; 90 supply due to COVID Start Date: 01/01/20 Stop Date: 03/31/20 Status: Ordered ProAir HFA 90 mcg/inh inhalation aerosol 2 puff(s), NEB, q4hr, ONLY WHEN NEEDED FOR WHEEZING OR SHORTNESS OF BREATH., # 8.5 gm, Refill(s) 3,[facility] - [facility] Start Date: 05/21/19 Status: Ordered sertraline 100 mg oral tablet 100 mg = 1 tab(s), Oral, Daily, # 30 tab(s), 2 Refill(s), Pharmacy: [facility], 1 tab(s) Oral Daily,x30 day(s) Start [...] Most recent to oldest [Reference Range]: 1 Weight 78.636 kg (01/23/20 9:29 AM) Weight Measured (lbs) 172.999 lb (01/23/20 9:29 AM) Weight Percentile 94.89 1 (01/23/20 9:29 AM) 1Result Comment: ^~:!Percentile Source -CDC-WHO Social History Social History Type Response Smoking Status Never (less than 100 in lifetime) entered on: 11/16/19 Sex
--- OUTSIDE RECORDS SUMMARY | 2024-05-30 16:16 | XMS_ITS | Continuity of Care Document ---
Author Organization [facility] Address [address] [place] [address] Care Team Providers Care Hand Former Name Role Phone PAULINA SEPULVEDA Primary Care Physician Encounter BVT Date(s): 11/29/19 - 11/29/19 [facility] [address] [place] [address] [place] [address] Encounter Diagnosis Behavior concern(Discharge Diagnosis) - 11/29/19 Depression(Discharge Diagnosis) - 11/29/19 Adjustment disorder with depressed mood(Discharge Diagnosis) - 11/29/19 ADHD(Discharge Diagnosis) - 11/29/19 Defiant behavior(Discharge Diagnosis) - 11/29/19 Discharge Disposition: Home or Self Care Attending Physician: SOFIYA BURNS MD Allergies, Adverse Reactions, Alerts No Known Allergies Assessment and Plan Extracted from: Title:Telemedicine med check Zoloft 50 mg renewed, Focalin Exar 40 mg 1 prescription sent Author:SOFIYA BURNS MD Date:11/29/19 1.??Adjustment disorder with depressed mood??F43.21 ??Currently on Zoloft.?? He has had ongoing issues with??defiance and moodiness.?? He is a social individual and??the??relative isolation due to the COVID-19 pandemic??is likely to be quite stressful on him.?? They are often difficult parent-child interactions??and there are fewer outlets now.?? He does get some respite through??[facility]??which is appreciated. 2.??ADHD??F90.9 ??He is now on Focalin XR 40 mg. ??1 prescription was sent.?? I think he could have??2 or 3 more prescription scripts prior to being seen.?? He is making some progress??on his academic work but he??is not a self-motivated??student. 3.??Depression??F32.9 Currently on Zoloft.?He does have some??weird feelings on the medication??but overall he thinks that??it may be helping. ??He does not??see a need for dose change. ??I will check in with him??in 4 weeks. 4.??Behavior concern??R46.89,?? Defiant behavior??R46.89 ??This is an ongoing concern.?? Mother seems to think that he is less tomlinson. Orders: sertraline, 50 mg = 1 tab(s), Oral, Daily, # 30 tab(s), 2 Refill(s), Pharmacy: [facility], 1 tab(s) Oral Daily,x30 day(s) This was a two-part visit. ??I spent approximately 25 minutes with??the patient alone and another 5 minutes later with his mother.?? This was all counseling and coordination of care Immunizations Given and Recorded Vaccine Date Status [...] pediatric vaccine 02/23/05 Recorded Medications Focalin XR 10 mg oral capsule, extended release 10 mg = 1 cap(s), Oral, qAM, # 30 cap(s), 0 Refill(s), Pharmacy: [facility], 1 cap(s) Oral qAM Start Date: 11/08/19 Status: Ordered Focalin XR 25 mg oral capsule, extended release 25 mg = 1 cap(s), Oral, qAM, Fill 06/25/19 for ADHD, # 30 cap(s), 0 Refill(s), Pharmacy: [facility] - [facility], 1 cap(s) Oral qAM,x30 day(s),Instr:Fill 06/25/19 for ADHD Start Date: 06/25/19 Stop Date: 07/25/19 Status: Ordered Focalin XR 30 mg oral capsule, extended release 30 mg = 1 cap(s), Oral, qAM, Fill 07/16/19, # 30 cap(s), 0 Refill(s), Pharmacy: [facility], 1 cap(s) Oral qAM,x30 day(s),Instr:Fill 07/16/19 Start Date: 07/16/19 Stop Date: 08/15/19 Status: Ordered Focalin XR 35 mg oral capsule, extended release 35 mg = 1 cap(s), Oral, qAM, # 30 cap(s), 0 Refill(s), Pharmacy: [facility], 1 cap(s) Oral qAM,x30 day(s) Start Date: 07/12/19 Stop Date: 08/11/19 Status: Ordered Focalin XR 40 mg oral capsule, extended release 40 mg = 1 cap(s), Oral, qAM, # 30 cap(s), 0 Refill(s), Pharmacy: [facility], 1 cap(s) Oral qAM,x30 day(s) Start Date: 11/29/19 Stop Date: 12/29/19 Status: Ordered ProAir HFA 90 mcg/inh inhalation aerosol 2 puff(s), NEB, q4hr, ONLY WHEN NEEDED FOR WHEEZING OR SHORTNESS OF BREATH., # 8.5 gm, Refill(s) 3,[facility] - [facility] Start Date: 05/21/19 Status: Ordered Zoloft 25 mg oral tablet 25 mg = 1 tab(s), Oral, Daily, Take 1 tablet a day for 7 days then take 2 tablets a day until recheck, # 21 tab(s), 2 Refill(s), Pharmacy: [facility], 1 tab(s) Oral Daily,x21 day(s),Instr:Take 1 tablet a day for 7 days then take 2 tablets... Start Date: 11/16/19 Stop Date: 01/18/20 Status: Ordered Zoloft 50 mg oral tablet 50 mg = 1 tab(s), Oral, Daily, # 30 tab(s), 2 Refill(s), Pharmacy: [facility], 1 tab(s)Oral Daily,x30 day(s) Start Date: 11/29/19 Stop Date: 02/27/20 Status: Ordered Problem List Condition Effective Dates [...]
--- OUTSIDE RECORDS SUMMARY | 2024-05-30 16:16 | XMS_ITS | Encounter Summary ---
Author Organization [facility] Address [address] [place] [address] Care Team Providers Care Photographic Technician Name Role Phone Tish Thomas CLAY ROASTER Primary Care Provider [phone] Encounter Details Date Type Department Care Team (Late st Contact Info) Description 05/19/2024 Lab Requisition [facility] Medicine - [facility] [address] [place], [place] [address] Outr Resulting Lab, Provider Social History Tobacco [...] TO CONFIRMATION, U Routine 05/18/2024 22:07 EST documented in this encounter Results * FENTANYL SCREEN WITH REFLEX TO CONFIRMATION, U (05/18/2024 22:07 EST) Fentanyl Screen with Reflex to Confirmation, U Negative <1 ng/mL 05/21/2024 11:31 EST [facility] Urine URINE / Unknown 05/18/2024 2 2:07 EST 05/19/2024 21:33 EST Narrative [facility] - 05/21/2024 11:31 EST Testing performed by: [facility] [address] [facility], [address], [place] [address] Product Marketing Consultant: Jorge Price MD; CLIA # [id number] us Provider Outr Resulting Lab URINALYSIS ORDERABLE S Final Result Performing Organization Address City/State/[facility] Co de Phone Number [facility] [address] [place] [address], [facility] [address] [place] [address], [facility] [phone] documented in this encounter Visit Diagnoses Not on filedocumented in this encounter Care Teams Photographic Technician Relationship Specialty Start Date End Date Tish Thomas NP [address] [place] [address] PCP - General 12/15/21 documented as of this encounter
--- OUTSIDE RECORDS SUMMARY | 2024-05-30 16:17 | XMS_ITS | Continuity of Care Document ---
Author Organization [facility] Address [address] [place] [address] Care Team Providers Care Drafter Marine Name Role Phone PAULINA SEPULVEDA Primary Care Physician [phone] Encounter BVT Date(s): 11/16/19 - 11/16/19 [facility] [address] [place] [address] [place] [address] Encounter Diagnosis Adjustment disorder with depressed mood(Discharge Diagnosis) - 11/16/19 Defiant behavior(Discharge Diagnosis) - 11/16/19 Depression(Discharge Diagnosis) - 11/16/19 ADHD(Discharge Diagnosis) - 11/16/19 Discharge Disposition: Home or Self Care Attending Physician: SOFIYA BURNS MD Allergies, Adverse Reactions, Alerts No Known Allergies Assessment and Plan Extracted from: Title:Telemedicine, depression, begin Zoloft Aut hor:SOFIYA BURNS MD Date:11/16/19 1.??Depression??F32.9 Chase has at times had a depressed affect.?? This concern was raised during psychological evaluation in July 2018.?? He is a social individual??and is having trouble being away from his friends.?? He also has defiant behavior??and??has in many ways exacerbated to some loneliness by??behaving defiantly and losing his phone privileges.?? He has a history of some suicidal thoughts about a month ago??but he??stated that he does not feel suicidal now.?? He does state that he has someone that he could talk to, his??aunt Suri. ??He expressed a willingness to try??prescription medication.?? I told him we would begin with a low dose. ??I told him that he would not CFX right away. ??I told him I would need to check in with him regularly. 2.??Adjustment disorder with depressed mood??F43.21 ??Staying at home as part of protection from COVID-19??has been difficult.?? I think it exacerbated an underlying depression. 3.??ADHD??F90.9 ??I would not expect him to do well with online schooling.?? He does think the medication helps him attend to some of his classes. 4.??Defiant behavior??R46.89 ??Discussed with mother and she will keep??keep??consistent??consequences for??behavior while trying to??allow him some social outlets. This visit took 50 minutes, it was done in 2 parts,??it was all based on counseling and coordination of care Future Appointments Functional Status 11/16/19 Recent Travel History No recent travel COVID-19 [...] qAM, # 30 cap(s), 0 Refill(s), Pharmacy: [facility], 1 cap(s) Oral qAM Start Date: 11/08/19 Status: Ordered Focalin XR 25 mg oral capsule, extended release 25 mg = 1 cap(s), Oral, qAM, Fill 06/25/19 for ADHD, # 30 cap(s), 0 Refill(s), Pharmacy: [facility], 1 cap(s) Oral qAM,x30 day(s),Instr:Fill 06/25/19 for ADHD Start Date: 06/25/19 Stop Date: 07/25/19 Status: Ordered Focalin XR 30 mg oral capsule, extended release 30 mg = 1 cap(s), Oral, qAM, Fill 07/16/19, # 30 cap(s), 0 Refill(s), Pharmacy: [facility], 1 cap(s) Oral qAM,x30 day(s),Instr:Fill 07/16/19 Start Date: 07/16/19 Stop Date: 08/15/19 Status: Ordered Focalin XR 35 mg oral capsule, extended release 35 mg = 1 cap(s), Oral, qAM, # 30 cap(s), 0 Refill(s), Pharmacy: [facility], 1 cap(s) Oral qAM,x30 day(s) Start Date: 07/12/19 Stop Date: 08/11/19 Status: Ordered ProAir HFA 90 mcg/inh inhalation aerosol 2 puff(s), NEB, q4hr, ONLY WHEN NEEDED FOR WHEEZING OR SHORTNESS OF BREATH., # 8.5 gm, Refill(s) 3,[facility] Start Date: 05/21/19 Status: Ordered Zoloft 25 mg oral tablet 25 mg = 1 tab(s), Oral, Daily, Take 1 tablet a day for 7 days then take 2 tablets a day until recheck, # 21 tab(s), 2 Refill(s), Pharmacy: [facility], 1 tab(s) Oral Daily,x21 day(s),Instr:Take 1 tablet a day for 7 days then take 2 tablets... Start Date: 11/16/19 Stop Date: 01/18/20 Status: Ordered Problem List Condition Effective Dates [...]
--- OUTSIDE RECORDS SUMMARY | 2024-05-30 16:17 | XMS_ITS | Continuity of Care Document ---
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 ??There are lesions on the neck are typical.?? According to up-to-date there is sometimes larger masses on the scalp and I think that is probably what is happening here.?? I did consider the possibility of bacterial abscesses??or??tinea capitis.?? Both??bacterial and fungal cultures were sent??and he will be started on??dicloxacillin??500 3 times daily. ??He will also apply mupirocin to the??lesions directly??and??to his nares at night. ??I cautioned him to use his own towel and discussed personal hygiene.?? In general,??he is an adolescent who??is meticulous about his hygiene. - Fungal and Bacterial culture sent to [facility] lab. - dicloxacillin 500 mg oral capsule, 500 mg= 1 cap(s), Oral, TID, 1 refills, 1 cap 3x per day for 10 days - mupirocin 2% topical ointment, 1 al, TOP, TID, ?? - If no improvement, will refer to Dermatology. - Pt. will follow up in 3 weeks. ?? 2.??ADHD??F90.9 ??- Focalin XR 30 mg oral capsule, extended release, 30 mg with 1 refill. - F/U in 2 months ?? I, Moira Schultz, am serving as a scribe to document services personally performed by Dalia Aguillon MD based on my observations and the clinician? s statements to me. Immunizations Given and Recorded Vaccine Date Status [...] day(s), # 30 cap(s), 1 Refill(s),08/05/19, Pharmacy: [facility], 1 cap(s) Oral TID,x10 day(s),Instr:1 cap 3x per day for 10 days. Start Date: 07/16/19 Stop Date: 08/05/19 Status: Ordered Focalin XR 25 mg oral capsule, extended release 25 mg = 1 cap(s), Oral, qAM, Fill 06/25/19 for ADHD, # 30 cap(s), 0 Refill(s), Pharmacy: [facility], 1 cap(s) Oral qAM,x30 day(s),Instr:Fill 06/25/19 for ADHD Start Date: 06/25/19 Stop Date: 07/25/19 Status: Ordered Focalin XR 30 mg oral capsule, extended release 30 mg = 1 cap(s), Oral, qAM, Fill 07/16/19, # 30 cap(s), 0 Refill(s), Pharmacy: [facility], 1 cap(s) Oral qAM,x30 day(s),Instr:Fill 07/16/19 Start Date: 07/16/19 Stop Date: 08/15/19 Status: Ordered Focalin XR 30 mg oral capsule, extended release 30 mg = 1 cap(s), Oral, qAM, Fill 08/14/19, # 30 cap(s), 0 Refill(s), Pharmacy: [facility], 1 cap(s) Oral qAM,x30 day(s),Instr:Fill 08/14/19, 08/14/19 Start Date: 07/16/19 Stop Date: 08/15/19 Status: Ordered Focalin XR 35 mg oral capsule, extended release 35 mg = 1 cap(s), Oral, qAM, # 30 cap(s), 0 Refill(s), Pharmacy: [facility], 1 cap(s) Oral qAM,x30 day(s) Start Date: 07/12/19 Stop Date: 08/11/19 Status: Ordered mupirocin 2% topical ointment 1 al, TOP, TID, X 10 day(s), # 15 gm, 1 Refill(s), 08/05/19, [facility], 1 al TOP TID,x10 day(s) Start Date: 07/16/19 Stop Date: 08/05/19 Status: Ordered ProAir HFA 90 mcg/inh inhalation aerosol 2 puff(s), NEB, q4hr, ONLY WHEN NEEDED FOR WHEEZING OR SHORTNESS OF BREATH., # 8.5 gm, Refill(s) 3,[facility] Start Date: [...] Most recent to oldest [Reference Range]: 1 Temperature Temporal [36-38 DegC] 36.5 D egC (07/16/19 4:10 PM) Weight 78 kg (07/16/19 4:10 PM) Weight Measured (lbs) 171.6 lb (07/16/19 4:10 PM) Weight Percentile 96.13 1 (07/16/19 4:10 PM) 1Result Comment: ^~:!Percentile Source -CDC-WHO Social History Social History Type Response Smoking Status Never (less than 100 in lifetime); Concerns about tobacco use in household: No entered on: 03/12/18 Sex Hospital Discharge Instructions Follow Up Care 07/16/2019 16:09:15 With:DALIA AGUILLON MD Address: [address] [place] [phone] When:As needed
[2024-05-30 16:28] LABS: Platelet Count 316 10^3/uL (130-400)
[2024-05-30 16:30] LABS: ALT 24 U/L (16-63); AST 16 U/L (15-37); Albumin 3.3 g/dL (3.4-5.0); Alkaline Phosphatase 111 U/L (46-116); Anion Gap 6.7 mmol/L (3-11); BUN 12 mg/dL (7-18); Bilirubin, Total 0.25 mg/dL (0.2-1.0); CO2 27.3 mmol/L (21.0-32.0); CREATININE 1.1 mg/dL (0.70-1.30); Calcium 8.4 mg/dL (8.5-10.1); Chloride 110 mmol/L (98-107); Estimated GFR 99.17 (mL/min/1.73m2); Glucose 105 mg/dL (74-106); Magnesium 1.7 mg/dL (1.8-2.4); Potassium 4.7 mmol/L (3.5-5.1); Sodium 144 mmol/L (136-145); Total Protein 7.1 g/dL (6.4-8.2); Troponin I 6 ng/L (<or=76)
--- NOTE | 2024-05-30 16:44 | DI.RAD_ITS ---
Exam(s) XR CHEST 2V PA LATERAL EXAM: XR CHEST 2V PA LATERAL CLINICAL HISTORY: Recent bronchitis, cough. TECHNIQUE: 2D digital imaging was performed. COMPARISON: CR,XR XR CHEST 2V PA LATERAL from 05/18/2024 FINDINGS: 2 views: Heart size is normal. The mediastinum is not widened. Right lung is clear. There is subtle increased markings in the left lower lobe retrocardiac region, some of which appear to be normal vascular markings and slightly more laterally what may be early dev eloping infiltrate. There are no pleural effusions no pneumothorax. No fractures. IMPRESSION: Possibly early developing infiltrate left lower lobe. No pleural effusions. DATA REPOSITORY: RADIATION DOSE DELIVERED:
[2024-05-30 16:54] LABS: COVID-19 PCR Negative (Negative); Influenza A PCR Negative (Negative); Influenza B PCR Negative (Negative); RSV PCR Negative (Negative)
[2024-05-30 17:05] LABS: Source Nasopharynx
[2024-05-30 17:14] LABS: Bilirubin Negative (Negative); Blood Negative (Negative); Clarity Clear (Clear); Glucose Negative (Negative); Ketones Negative (Negative); Leukocyte Esterase Negative (Negative); Nitrite Negative (Negative); Urobilinogen 0.2 mg/dL (Up to 0.2); pH 6.5 (5-8)
[2024-05-30 17:29] LABS: Bacteria Rare HPF (Negative); C & S Indicated? No; Casts Negative LPF (Negative); Crystals Negative HPF (Negative); Epithelial Cells Rare HPF (Negative); Mucus Negative (Negative); RBC 0-2 HPF (0-2); WBC 0-2 HPF (0-5)
[2024-05-30] MEDS: Amoxicillin 500 MG CAP 1000 MG PO (17:43)
[2024-05-30] MEDS: Azithromycin 250 MG TAB 500 MG PO (17:43)
== END 2024-05-30 17:52 | disposition home or self-care (01) ==
PROVIDERS: Emergency Provider Emergency Medicine
DX: J18.9 Pneumonia, unspecified organism (principal); R55 Syncope and collapse; J45.909 Unspecified asthma, uncomplicated
CPT/HCPCS: 80053; 87040; 87637; 93005; 99285; 71046; 81003; 81015; 83735; 84484; 85025; 93010; 99284